=== PATIENT | female | born 1950 | race Caucasian/White ===

== ENCOUNTER 2017-02-13 06:11 | Observation (INO) | payer OTHER ==
[~2017-02-13] VITALS: Ht 165.1 cm; Wt 93.1 kg
[2017-02-13] MEDS ORDERED: OXYMETAZOLINE HCL 0.05% 15 ML NASAL SPRAY ONE (07:10)
[2017-02-13] MEDS ORDERED: BACITRACIN TOP OINT 15 GM TUBE ONE (07:11)
[2017-02-13] MEDS ORDERED: LIDOCAINE 1%/EPINEPHrine 1:100,000 SOLN 30 ML VIAL ONE (07:13)
[2017-02-13] MEDS ORDERED: SYNT112T PO (07:39)
[2017-02-13] MEDS ORDERED: METOPROLOL TARTRATE 25 MG TAB PO PRN (07:45)
[2017-02-13] MEDS ORDERED: SODIUM CHLORID 0.9% 500 ML IV PRN (07:45)
[2017-02-13] MEDS ORDERED: POVIDONE IODINE 5% (ANTISEPSIS KIT) 4 APPLICATIONS EACH NARE PRN (07:45)
[2017-02-13] MEDS ORDERED: INSULIN HUMAN REGULAR 1,000 UNITS/10 ML VIAL SQ PRN (07:45)
[2017-02-13] MEDS ORDERED: CHLORHEXIDINE GLUCONATE 2 % 1 PACK (2 CLOTHS) TOPICAL PRN (07:45)
[2017-02-13] MEDS ORDERED: LACTATED RINGER'S 1000 ML IV PRN (07:45)
[2017-02-13] MEDS ORDERED: AMPICILLIN-SULBACTAM INJ 3 GM VIAL ONE (08:06)
[2017-02-13] MEDS ORDERED: SODIUM CHLORIDE 0.9% INJ 100 ML ONE (08:06)
[2017-02-13] MEDS ORDERED: AMPICILLIN/SULBAC 3 GM/NS 100 ML IV SCH ×2 (08:45)
[2017-02-13] MEDS ORDERED: MIDAZOLAM HCL 2 MG/2 ML VIAL ONE (10:50)
[2017-02-13] MEDS ORDERED: MORPHINE SULFATE 4 MG/ML INJ ONE (11:38)
[2017-02-13 12:00] VITALS: O2SAT 99
[2017-02-13] MEDS ORDERED: ONDANSETRON HCL 4 MG/2 ML VIAL IV PUSH PRN (12:15)
[2017-02-13] MEDS ORDERED: SODIUM CHLORIDE FLUSH PRN IV FLUSH (12:45)
[2017-02-13] MEDS: LACTATED RINGER'S 1000 ML INJ 1,000 ML IV SCH (13:52)
[2017-02-13] MEDS: ACETAMINOPHEN/HYDROcodone 325 MG/5 MG TAB PO PRN ×2 (13:55→18:06)
[2017-02-13 16:00] VITALS: BP 125/62; PULSE 66; RESP 18; TEMP 97.8; O2SAT 96
[2017-02-13] MEDS: AMPICILLIN/SULBAC 3 GM/NS 100 ML IV SCH ×4 (17:29→22:57)
--- NOTE | 2017-02-13 19:30 | EKG ---
Date Performed: 02/13/2017 Time Performed: 07:56:14 PTAGE: 66 years EKG: SINUS BRADYCARDIA WITH OCCASIONAL ECTOPIC BEATS WHICH MAYBE MATRICULAR. POOR INITIAL ANTERI OR FORCES. ABNORMAL ECG NO PREVIOUS TRACING DOCTOR: Klaus Mccarty Interpretating Date/Time 02/13/2017 19:29:33
[2017-02-13 19:48] VITALS: O2SAT 99
[2017-02-13 20:00] VITALS: BP 142/78; PULSE 78; RESP 20; TEMP 98.6; O2SAT 96
[2017-02-13] MEDS ORDERED: SODIUM CHLORIDE FLUSH BID IV FLUSH SCH (21:00)
[2017-02-14] VITALS: BP 124/97; PULSE 79; RESP 20; TEMP 96.2; O2SAT 96
[2017-02-14] MEDS: LACTATED RINGER'S 1000 ML INJ 1,000 ML IV SCH (02:10)
[2017-02-14 07:30] VITALS: BP 133/99; PULSE 81; RESP 20; TEMP 96.5; O2SAT 96
[2017-02-14 08:00] VITALS: O2SAT 97
--- NOTE | 2017-02-26 13:31 | MP ---
cc: MARK NAM M.D. DATE OF SURGERY: February 13, [address] Mark Nam. PREOPERATIVE DIAGNOSIS 1. Chronic pansinusitis. 2. Nasal airway obstruction. 3. Nasal septal deviation. 4. Hypertrophy inferior turbinates. 5. Chronic sinus headache. POSTOPERATIVE DIAGNOSIS 1. Chronic pansinusitis. 2. Nasal airway obstruction. 3. Nasal septal deviation. 4. Hypertrophy inferior turbinates. 5. Chronic sinus headache. OPERATION PERFORMED 1. Open repair nasal septal fracture. 2. Bilateral submucosal resection of inferior turbinates. 3. Bilateral endoscopic total ethmoidectomy. 4. Bilateral endoscopic maxillary antrostomy. 5. Bilateral endoscopic exploration of frontal sinus duct with balloon sinuplasty. 6. Bilateral endoscopic sphenoidotomy with debridement of sphenoid sinus contents. INDICATIONS Documented in the history and physical. DESCRIPTION OF OPERATION The patient was taken to OR #2 and placed in the supine position. Following induction of general anesthesia and intubation the nose was packed bilaterally with cotton pledgets saturated in 0.05% Oxymetazoline. The nasal septum and inferior turbinates were injected with a total of 12 mL of 1% Xylocaine with epinephrine 1:100,000. She was then prepped and draped for surgery. The nasal packing was removed and a seble-transfixion incision was made in the left nasal vestibule. Through this incision the septal mucosa was elevated as far as the rostrum of the sphenoid. This exposed the quadrangular cartilage which showed ample evidence of old long healed septal fracture with numerous comminuted fragments producing bones and spurs which obstructed the nasal airway, accumulative area of 1.5 x 2.5 cm of cartilage were removed in a piecemeal fashion preserving 1.5 cm dorsal and caudal cartilaginous struts. The bony septum was then removed with Mustapha Espitiaton forceps and the maxillary crest was removed with a 6-mm Maureen chisel. The incision was then closed using a running suture of 4-0 Chromic and the mucosal layers of septum were approximated to each other with a quilting stitch of 4-0 plain gut. The inferior turbinates were addressed next, they were fractured out medially and stab incisions made along their inferior surfaces. Through these incisions the submucosal soft tissue was reduced using a curette and preserving the conchal bone. The incision was then cauterized using the suction Bovie at 35 horne. The remnants of the inferior turbinates were then re-lateralized to the lateral nasal wall. The remainder of the operation was completed using endoscopic visualization with a Storz 0 degree fiberoptic scope. Additional injections of lidocaine and epinephrine were made into the attachments of the middle turbinates as well as the uncinate processes and the anterior ethmoid cells bilaterally. Additional 10 mL was injected. The left side was addressed first beginning with amputation of the middle turbinate using through cutting Blakesley forceps and power microdebrider followed by uncinectomy which exposed the ethmoid bulla. This was bluntly penetrated, the anterior ethmoid cells were entered. They were debrided using blunt and power dissection which was carried back as far as the basal lamella of the middle turbinate. This was then reduced medially to laterally with the power debrider exposing the posterior cells. These were also exenterated using blunt and power dissection. This was carried back as far as the rostrum of the sphenoid and the middle turbinates preserved during this process. Portions of the left ethmoid were included in the specimen labeled left sinus contents. Next, the maxillary ostium was enlarged using through cutting Blakesley forceps and the Stasudhaberger forceps as well as the power microdebrider. The frontal duct was addressed next using the balloon Acclarent technique. The guidewire was advanced into the frontal sinus and the balloon was advanced over the wire. The balloon was then inflated at three levels superiorly midpoint and inferiorly in the duct at the junction with the anterior ethmoids, at each level it was inflated to a pressure of 12 atmospheres. The balloon was then removed and the duct was verified patent using a curved suction and a 70 degree scope. The left side was then irrigated with chilled saline and packed with cotton pledgets saturated in Oxymetazoline while the right side was operated in the same fashion beginning with amputation of the middle turbinate followed by uncinectomy and exenteration of anterior and posterior ethmoid cells. The maxillary ostium was enlarged. The frontal duct was dilated with the balloon technique and the sphenoid sinus was also enlarged using the balloon technique and with manual debridement with the Blakesley forceps and a 0 degree scope. The right side was then also irrigated and packed with the cotton pledgets saturated in Oxymetazoline and remained in place for a period of 5 minutes. All packing was then removed and was replaced in the ethmoid and maxillary sinuses with Stammberger sinus foam. The inferior one half of nasal vault was packed with a 5.5 cm rapid rhino pack on each side which was inflated with 5 mL of air. The procedure was then terminated and the patient was reversed from anesthesia and taken to recovery in good condition. There were no complications. Blood loss was 300 mL. MD BILL White/ADORE /12:30 PM /1:11 PM
== END 2017-02-14 08:23 | disposition home or self-care (01) ==
LOC: PHSDC 06:11 → PH3B 12:35
PROVIDERS: ADMIT Otolaryngology; ATTEND Otolaryngology
DX: J34.2 Deviated nasal septum (principal); J34.89 Other specified disorders of nose and nasal sinuses; J32.4 Chronic pansinusitis; J34.3 Hypertrophy of nasal turbinates; J32.8 Other chronic sinusitis; R51 Headache; R94.31 Abnormal electrocardiogram [ECG] [EKG]
CPT/HCPCS: 00160; 21336; 30140; 31255; 31256; 31276; 31288; 88305; 93005; 94762; 96361; 96365; 96366; 99285; G0378; J0295; J2250; J2270; J3010; J7120

== ENCOUNTER 2017-02-18 02:41 | Emergency (ER) | payer OTHER ==
[~2017-02-18] VITALS: Ht 165.1 cm; Wt 90.0 kg
[~2017-02-18 02:41] MED LIST: SYNT112T PO
[2017-02-18 02:44] VITALS: BP 128/70; PULSE 110; RESP 18; TEMP 97.8; O2SAT 96
[2017-02-18] MEDS ORDERED: LEVOTAB PO (03:00)
[2017-02-18] MEDS ORDERED: ATOR20TA15 PO (03:00)
[2017-02-18 03:01] VITALS: BP 161/91; PULSE 61; RESP 18; O2SAT 97
[2017-02-18] MEDS ORDERED: OXYMETAZOLINE HCL 0.05% 15 ML NASAL SPRAY NASAL ONE (03:15)
[2017-02-18 04:12] LABS: AUTOMATED NEUTROPHIL # 7.8 TH/MM3 (1.8-7.7); BASOPHIL # 0.1 TH/MM3 (0-0.2); EOSINOPHIL # 0.2 TH/MM3 (0-0.4); HEMATOCRIT 33.5 % (35.0-46.0); HEMOGLOBIN 11.2 GM/DL (11.6-15.3); LYMPH % 25.5 % (9.0-44.0); LYMPHOCYTE # 3.1 TH/MM3 (1.0-4.8); MEAN CELL VOLUME 92.2 FL (80.0-100.0); MEAN CORPUSCULAR HEMOGLOBIN 30.7 PG (27.0-34.0); MEAN CORPUSCULAR HGB CONC 33.3 % (32.0-36.0); MONO % 6.5 % (0.0-8.0); MONOCYTE # 0.8 TH/MM3 (0-0.9); PLATELET COUNT 322 TH/MM3 (150-450); RED BLOOD COUNT 3.64 MIL/MM3 (4.00-5.30); RED CELL DISTRIBUTION WIDTH 12.5 % (11.6-17.2); WHITE BLOOD COUNT 12.1 TH/MM3 (4.0-11.0)
[2017-02-18 04:42] LABS: PROTHROMBIN TIME - PATIENT 10.7 SEC (9.8-11.6)
--- NOTE | 2017-02-18 06:01 | PD ---
HPI Chief Complaint: Bleeding Time Seen by Provider: 04:07 Travel History International Travel<30 days: No Contact w/Intl Traveler<30days: No Traveled to known affect area: No History of Present Illness HPI 66-year-old female presents to the emergency department private transportation after being awakened from sleep with epistaxis. Patient underwent rhinoplasty procedure by Dr. Nam on Sunday had packing removed on Sunday was re-seen on Sunday for recurrent nosebleeds and has scheduled appointment on Sunday. Patient been doing well until this evening and has had continuous bleeding from bilateral nares and posterior pharyngeal bleeding and clots. Patient denies any dizziness or near syncope or shortness of breath. Patient also denies any chest pain. Patient does not take any blood thinning agents. Patient does complain of facial soreness and denies any fever or chills. PFSH Past Medical History Narrative Medical Hypothyroidism hypertension rhinoplasty; no tobacco use; nursing notes reviewed Blood Disorders: No Cancer: No Cardiovascular Problems: No Diabetes: No Endocrine: Yes Genitourinary: No Hepatitis: No Hiatal Hernia: No Immune Disorder: No Medical other: Yes (HIVES) Musculoskeletal: Yes (left knee needs replaced. ) Neurologic: No Psychiatric: No Reproductive: No Respiratory: No Thyroid Disease: Yes (hypothyroidism) Past Surgical History Abdominal Surgery: Yes (APPENDECTOMY) AICD: No Body Medical Devices: TOE FUSIONS, SPINAL PLATE Cardiac Surgery: No Ear Surgery: No Endocrine Surgery: No Eye Surgery: No Genitourinary Surgery: No Gynecologic Surgery: No Joint Replacement: Yes (RIGHT TOTAL KNEE REPLACEMENT) Neurologic Surgery: No Oral Surgery: Yes (TONSILLECTOMY) Pacemaker: No Thoracic Surgery: No Other Surgery: Yes (3 back surgeries, RTKR, L great toe fusion, laproscopic R shoulder, SINUS) Social History Alcohol Use: No Tobacco Use: No (QUIT IN 1988) Substance Use: No Allergies-Medications (Allergen,Severity, Reaction): Coded Allergies: Sulfa (Sulfonamide Antibiotics) (Verified Allergy, Unknown, Itching, 02/18) Reported Meds & Prescriptions Reported Meds & Active Scripts Active Zofran Odt (Ondansetron Odt) 4 Mg Tab 4 Mg SL Q6HR PRN Lortab (Hydrocodone-Acetaminophen) 5-325 Mg Tab 1 Tab PO Q6H PRN Amoxicillin 500 Mg Tab 500 Mg PO TID 7 Days Reported Levocetirizine 5 Mg Tab 5 Mg PO DAILY Atorvastatin (Atorvastatin Calcium) 20 Mg Tab 20 Mg PO HS Synthroid (Levothyroxine Sodium) 112 Mcg Tab 112 Mcg PO DAILY Review of Systems Except as stated in HPI: all other systems reviewed are Neg General / Constitutional: No: Fever, Chills Eyes: No: Visual changes HENT: Positive: Congestion, Nosebleed, No: Headaches, Neck Pain Cardiovascular: No: Chest Pain or Discomfort Respiratory: No: Shortness of Breath Gastrointestinal: No: Nausea, Vomiting Genitourinary: No: Flank Pain Musculoskeletal: No: Myalgias, Arthralgias Skin: No Rash Neurologic: No: Weakness, Dizziness, Syncope Psychiatric: No: Anxiety Hematologic/Lymphatic: No: Lymph Node Enlargement Physical Exam Narrative GENERAL: Well-developed well-nourished female in no acute distress no respiratory distress SKIN: Warm and dry. HEAD: Normocephalic. EYES: No scleral icterus. No injection or drainage. ENT: Bilateral epistaxis with bilateral Rhino Rocket balloons in place and posterior pharyngeal blood noted; airway is patent NECK: Supple, trachea midline. No JVD or lymphadenopathy. CARDIOVASCULAR: Regular rate and rhythm without murmurs, gallops, or rubs. RESPIRATORY: Breath sounds equal bilaterally. No accessory muscle use. GASTROINTESTINAL: Abdomen soft, non-tender, nondistended. MUSCULOSKELETAL: No cyanosis, or edema. BACK: Nontender without obvious deformity. No CVA tenderness. Data Data Last Documented VS Vital Signs Date Time Temp Pulse Resp B/P (MAP) Pulse Ox O2 Delivery O2 Flow Rate FiO2 02/18/17 06:14 02/18/17 06:02 94 18 02/18/17 03:01 97 Room Air 02/18/17 02:44 97.8 Orders Orders Oxymetazoline 0.05% [place] (Afrin 0.0 (02/18/17 03:15) Act Partial Throm Time (Ptt) (02/18/17 03:57) Prothrombin Time / Inr (Pt) (02/18/17 03:57) Complete Blood Count With Diff (02/18/17 03:57) Type And Screen (02/18/17 03:57) Ed Discharge Order (02/18/17 06:04) Labs Laboratory Tests Test 02/18/17 04:05 White Blood Count 12.1 TH/MM3 Red Blood Count 3.64 MIL/MM3 Hemoglobin 11.2 GM/DL Hematocrit 33.5 % Mean Corpuscular Volume 92.2 FL Mean Corpuscular Hemoglobin 30.7 PG Mean Corpuscular Hemoglobin Concent 33.3 % Red Cell Distribution Width 12.5 % Platelet Count 322 TH/MM3 Mean Platelet Volume 8.0 FL Neutrophils (%) (Auto) 65.0 % Lymphocytes (%) (Auto) 25.5 % Monocytes (%) (Auto) 6.5 % Eosinophils (%) (Auto) 2.0 % Basophils (%) (Auto) 1.0 % Neutrophils # (Auto) 7.8 TH/MM3 Lymphocytes # (Auto) 3.1 TH/MM3 Monocytes # (Auto) 0.8 TH/MM3 Eosinophils # (Auto) 0.2 TH/MM3 Basophils # (Auto) 0.1 TH/MM3 CBC Comment DIFF FINAL Differential Comment Prothrombin Time 10.7 SEC Prothromb Time International Ratio 1.0 RATIO Activated Partial Thromboplast Time 26.8 SEC MDM Medical Decision Making Medical Screen Exam Complete: Yes Emergency Medical Condition: Yes Medical Record Reviewed: Yes Interpretation(s) CBC & BMP Diagram 02/18/17 04:05 Vital Signs Date Time Temp Pulse Resp B/P (MAP) Pulse Ox O2 Delivery O2 Flow Rate FiO2 02/18/17 06:14 02/18/17 06:02 94 18 118/57 (77) 141/65 (90) 130/56 (80) 02/18/17 03:01 61 18 161/91 (114) 97 Room Air 02/18/17 02:56 18 02/18/17 02:44 97.8 110 18 128/70 (89) 96 Differential Diagnosis Epistaxis coagulopathy and Benadryl hypertension Narrative Course Patient with ongoing epistaxis therefore Rhino Rocket balloon of the left nostril removed and right Rhino Rocket fell out of the right nostril therefore patient was administered 5.5 Rhino Rocket to the left and right nostrils with good hemostasis Patient monitored no ongoing Hemoglobin stable platelets and normal range and coagulation studies within normal limits 6:03 AM there is no further bleeding; patient is stable for outpatient management Diagnosis Primary Impression: Epistaxis Referrals: Nii Nam MD call for appointment Patient Instructions: General Instructions Additional Instructions: Increase fluid hydration Do not take any nonsteroidal anti-inflammatory medications Apply ice pack intermittently Follow-up with your urinalysis and throat specialist this week call office in a.m. to schedule follow-up appointment Return to the emergency department for any concerns or change in condition Take antibiotic as prescribed Med/Other Pt SpecificInfo: Prescription(s) given Scripts Ondansetron Odt (Zofran Odt) 4 Mg Tab 4 MG SL Q6HR Y for Nausea/Vomiting, #10 TAB 0 Refills Prov: Cinthia Rhodes MD 02/18/17 Hydrocodone-Acetaminophen (Lortab) 5-325 Mg Tab 1 TAB PO Q6H Y for PAIN, #7 TAB 0 Refills Prov: Cinthia Rhodes MD 02/18/17 Amoxicillin (Amoxicillin) 500 Mg Tab 500 MG PO TID for Infection for 7 Days, TAB 0 Refills Prov: Cinthia Rhodes MD 02/18/17 Disposition: 01 DISCHARGE HOME Condition: Stable Cinthia Rhodes MD Feb 18, 2017 06:01
[2017-02-18 06:02] VITALS: BP_SYST 118; BP_SYST 130; BP_SYST 141; BP_DIAS 56; BP_DIAS 57; BP_DIAS 65; PULSE 94; RESP 18
[2017-02-18] MEDS ORDERED: ZOFR4TAB3 SL (06:03)
[2017-02-18] MEDS ORDERED: HYDR-3533 PO (06:03)
[2017-02-18] MEDS ORDERED: AMOX500T PO (06:03)
== END 2017-02-18 06:36 | disposition home or self-care (01) ==
LOC: NEPC 02:41
DX: R04.0 Epistaxis (principal); R51 Headache; E03.9 Hypothyroidism, unspecified; I10 Essential (primary) hypertension; Z98.890 Other specified postprocedural states; Z87.39 Personal history of other diseases of the musculoskeletal system and connective tissue
CPT/HCPCS: 85025; 85610; 85730; 86850; 86900; 86901; 99284

== ENCOUNTER 2017-02-18 20:46 | Inpatient (IN) | payer OTHER, MEDICARE ==
[~2017-02-18] VITALS: Ht 165.1 cm; Wt 95.5 kg
[~2017-02-18 20:46] MED LIST changes: +AMOX500T PO; +ATOR20TA15 PO; +HYDR-3533 PO; +LEVOTAB PO; +ZOFR4TAB3 SL
[2017-02-18 20:47] VITALS: BP 153/70; PULSE 127; RESP 22; TEMP 98.4; O2SAT 95
[2017-02-18 21:11] VITALS: BP 137/70; PULSE 125; RESP 18; O2SAT 95
[2017-02-18] MEDS ORDERED: ONDANSETRON HCL 4 MG/2 ML VIAL IV ONE (21:45)
[2017-02-18] MEDS ORDERED: SODIUM CHLOR 0.9% 1000 ML INJ 1,000 ML IV ONE (21:45)
--- NOTE | 2017-02-18 22:20 | PD ---
HPI Chief Complaint: Nosebleed Time Seen by Provider: 21:13 Travel History International Travel<30 days: No Contact w/Intl Traveler<30days: No Traveled to known affect area: No History of Present Illness HPI The patient is a 66 year old female who presents to the [facility] emergency department with a history of recurrent nosebleeds that began after having surgery on February 13. The patient is postop day #5 status post sinus surgery by Dr. Nam. The patient reports that she was admitted overnight to the hospital and discharged on Sunday. She reports that on Sunday she began to have epistaxis. She went to Dr. Nam's office and had bilateral nares packed. The bleeding was controlled at that time and then recurred again on February 18 at approximately 2:30 AM. The patient was seen in the emergency department at that time and had her packing removed and replaced. Bleeding was again controlled, therefore the patient was discharged home to follow-up with her nuclear medical technologist. The patient reports that today again she began to have bleeding causing her to vomit blood due to blood pooling in the posterior oropharynx. She denies having any anterior bleeding around her packing. She reports that it began at 5 PM. On review of systems, she denies having any recent fevers, cough,neck pain, chest pain, shortness of breath, abdominal pain, vomiting, diarrhea, urinary symptoms, or other neurologic symptoms. [facility] Past Medical History Narrative Medical The patient's past medical history is significant for hypothyroid disorder, hypertension, recurrent sinus infections, arthritis. Blood Disorders: No Cancer: No Cardiovascular Problems: No Diabetes: No Diminished Hearing: No Endocrine: Yes Genitourinary: No Hepatitis: No Hiatal Hernia: No Immune Disorder: No Musculoskeletal: Yes (left knee needs replaced. ) Neurologic: No Psychiatric: No Reproductive: No Respiratory: No Thyroid Disease: Yes (hypothyroidism) Past Surgical History Narrative Surgical The patient's past surgical history is significant for an appendectomy, toe surgery, 3 prior back surgeries, right total knee replacement, tonsillectomy, sinus surgery on February 13, 2017 Abdominal Surgery: Yes (APPENDECTOMY) AICD: No Body Medical Devices: TOE FUSIONS, SPINAL PLATE Cardiac Surgery: No Ear Surgery: No Endocrine Surgery: No Eye Surgery: No Genitourinary Surgery: No Gynecologic Surgery: No Joint Replacement: Yes (RIGHT TOTAL KNEE REPLACEMENT) Neurologic Surgery: No Oral Surgery: Yes (TONSILLECTOMY) Pacemaker: No Thoracic Surgery: No Other Surgery: Yes (3 back surgeries, RTKR, L great toe fusion, laproscopic R shoulder, SINUS) Social History Alcohol Use: No Tobacco Use: No (QUIT IN 1988) Substance Use: No Allergies-Medications (Allergen,Severity, Reaction): Coded Allergies: Sulfa (Sulfonamide Antibiotics) (Verified Allergy, Unknown, Itching, 02/18) Reported Meds & Prescriptions Reported Meds & Active Scripts Active Zofran Odt (Ondansetron Odt) 4 Mg Tab 4 Mg SL Q6HR PRN Lortab (Hydrocodone-Acetaminophen) 5-325 Mg Tab 1 Tab PO Q6H PRN Amoxicillin 500 Mg Tab 500 Mg PO TID 7 Days Reported Levocetirizine 5 Mg Tab 5 Mg PO DAILY Atorvastatin (Atorvastatin Calcium) 20 Mg Tab 20 Mg PO HS Synthroid (Levothyroxine Sodium) 112 Mcg Tab 112 Mcg PO DAILY Review of Systems Except as stated in HPI: all other systems reviewed are Neg General / Constitutional: No: Fever Eyes: No: Visual changes HENT: Positive: Nosebleed, No: Headaches Cardiovascular: No: Chest Pain or Discomfort Respiratory: No: Shortness of Breath Gastrointestinal: Positive: Nausea, Vomiting, Hematemesis, No: Abdominal Pain Genitourinary: No: Dysuria Musculoskeletal: No: Pain Skin: No Rash Neurologic: No: Weakness Psychiatric: No: Depression Endocrine: No: Polydipsia Hematologic/Lymphatic: No: Easy Bruising Physical Exam Narrative General: The patient is a well-developed well-nourished female, uncomfortable appearing on examination, repeatedly spitting out blood holding a basin under her mouth. Head and Neck exam: Head is normocephalic atraumatic. Eyes: EOMI, pupils are equal round and reactive to light. Nose: Nasal packing is in place and bilateral nares. No bleeding is noted around the packing. Mouth: Dentition unremarkable. Moist mucus membranes. Posterior oropharynx is not erythematous, however blood is noted in the posterior oropharynx with a large clot present protruding behind the uvula. No tonsillar hypertrophy. Uvula midline. Airway patent. Neck: No palpable lymphadenopathy. No nuchal rigidity. No thyromegaly. Cardiovascular: Sinus tachycardia in the 1 teens without murmurs, gallops, or rubs. No pulse deficit to the extremities on simultaneous auscultation and palpation of his radial artery. Lungs: Clear to auscultation bilaterally. No wheezes, rhonchi, or rales. Abdomen: Soft, without tenderness to palpation in all 4 quadrants of the abdomen. No guarding, rebound, or rigidity. No tenderness on palpation of McBurney's point. Normal bowel sounds are audible. Extremities: No clubbing, cyanosis, or edema. 2+ pulses in all 4 extremities. Back: No costovertebral angle tenderness to palpation. Neurologic Exam: Grossly nonfocal. Skin Exam: No rash noted. Intact skin that is warm and dry. Data Data Last Documented VS Vital Signs Date Time Temp Pulse Resp B/P (MAP) Pulse Ox O2 Delivery O2 Flow Rate FiO2 02/18/17 21:11 125 15 02/18/17 21:11 137/70 (92) 95 Room Air 02/18/17 20:47 98.4 Orders Orders Electrocardiogram (02/18/17 21:26) Complete Blood Count With Diff (02/18/17 21:26) Comprehensive Metabolic Panel (02/18/17 21:26) Prothrombin Time / Inr (Pt) (02/18/17:26) Act Partial Throm Time (Ptt) (02/18/17 21:26) Chest, Single Ap (02/18/17 21:26) Ecg Monitoring (02/18/17 21:26) Oximetry (02/18/17 21:26) Sodium Chlor 0.9% 1000 Ml Inj (Ns 1000 M (02/18/17 21:45) Ondansetron Inj (Zofran Inj) (02/18/17 21:45) Diet Npo (02/19/17 Breakfast) Admit Order (Ed Use Only) (02/18/17 22:58) Labs Laboratory Tests Test 02/18/17 21:50 White Blood Count 14.9 TH/MM3 Red Blood Count 3.61 MIL/MM3 Hemoglobin 11.1 GM/DL Hematocrit 33.2 % Mean Corpuscular Volume 91.9 FL Mean Corpuscular Hemoglobin 30.8 PG Mean Corpuscular Hemoglobin Concent 33.6 % Red Cell Distribution Width 12.7 % Platelet Count 323 TH/MM3 Mean Platelet Volume 7.8 FL Neutrophils (%) (Auto) 72.8 % Lymphocytes (%) (Auto) 17.9 % Monocytes (%) (Auto) 7.3 % Eosinophils (%) (Auto) 1.5 % Basophils (%) (Auto) 0.5 % Neutrophils # (Auto) 10.9 TH/MM3 Lymphocytes # (Auto) 2.7 TH/MM3 Monocytes # (Auto) 1.1 TH/MM3 Eosinophils # (Auto) 0.2 TH/MM3 Basophils # (Auto) 0.1 TH/MM3 CBC Comment DIFF FINAL Differential Comment Prothrombin Time 10.7 SEC Prothromb Time International Ratio 1.0 RATIO Activated Partial Thromboplast Time 26.0 SEC Blood Urea Nitrogen 21 MG/DL Creatinine 0.85 MG/DL Random Glucose 125 MG/DL Total Protein 7.7 GM/DL Albumin 3.8 GM/DL Calcium Level 9.0 MG/DL Alkaline Phosphatase 82 U/L Aspartate Amino Transf (AST/SGOT) 16 U/L Alanine Aminotransferase (ALT/SGPT) 19 U/L Total Bilirubin 0.4 MG/DL Sodium Level 139 MEQ/L Potassium Level 3.7 MEQ/L Chloride Level 107 MEQ/L Carbon Dioxide Level 26.1 MEQ/L Anion Gap 6 MEQ/L Estimat Glomerular Filtration Rate 67 ML/MIN [facility] Medical Decision Making Medical Screen Exam Complete: Yes Emergency Medical Condition: Yes Medical Record Reviewed: Yes Interpretation(s) Last Impressions Chest X-Ray 02/18/172125 Signed Impressions: Service Date/Time: Saturday, February 18, 2017 23:14 - CONCLUSION: 1. No acute cardiopulmonary disease. 2. Scoliosis and degenerative changes. Sea Haney MD Differential Diagnosis Symptomatic anemia, versus coagulopathy Narrative Course During the course of the patients emergency department visit, the patients history, examination, and differential diagnosis were reviewed with the patient. The patient was placed on a die fitter with oximetry and frequent blood pressure monitoring. The patient had IV access obtained and blood work sent for analysis. EKG shows a sinus rhythm with a heart rate of 94, no acute ST segment elevation. Occasional premature atrial complexes are noted. The patient was initially provided normal saline 1 L IV fluid bolus, Zofran 4 mg IV. A call was immediately placed out to the urine is and throat specialist covering for Dr. Nam. I explained to him the large clot that was visualized in the patient's posterior oropharynx as well as the patient's continued posterior bleeding. I asked whether he would want me to attempt to suction and remove this clot. He recommended that the clot be left to stabilize the bleeding. He recommended that the packing the continued in place. He reports that Dr. Nam will see the patient in consultation tomorrow. He requested that the patient be made nothing by mouth. The patients laboratory studies were reviewed and remarkable for white count is 14.9, hemoglobin 11.1, platelets 323 with 72.8 neutrophils, CMP is remarkable for glucose of 125, BUN 21, PT 10.7, PTT 26 Radiology studies were reviewed and remarkable for a chest x-ray that shows no acute cardiopulmonary disease. Scoliosis and degenerative changes are noted. While being observed in the emergency department, the patient had an episode of gagging and the left nasal packing came out. I again spoke to regarding this patient's case. He requested that the patient have a 7.5 Rhino Rocket nasal packing placed back in the left nare. This was done while the patient was in the emergency department. Again, the patient's bleeding was controlled. The patients results were discussed with the patient, including the plan of care. I explained that further testing and/ or monitoring is indicated based on the patients history, examination, and/ or laboratory findings. Therefore, I recommended admission for additional evaluation. The patient expressed understanding and was agreeable with this plan. The patient was admitted to the hospital in guarded condition and [facility] Physician Communication Physician Communication The Patient's case was discussed with at 21:40. He recommended that we recheck the patient's current blood indices to assess for progression of anemia. He recommended continuation of IV fluids. He recommended that the patient be admitted for continued evaluation and treatment. He requested that the patient be made nothing by mouth. He anticipates that the patient may require evaluation in the OR again by Dr. Nam tomorrow. I asked whether he would want me to remove the patient's packing. He requested that I not remove the packing and not disrupt the clot in the posterior oropharynx. During the episode of retching, the patient's left nasal packing displaced. The patient had bleeding noted from the left naris and down the posterior oropharynx. Again was called regarding this patient's case and I spoke to him at 10:38 PM. He requested that a 7-1/2 size nasal packing be placed in the left nare to temporize the bleeding again. The patient's case is discussed with Dr. Rangel who did agree to admit the patient for further evaluation and treatment at this time. Diagnosis Primary Impression: Epistaxis, recurrent Additional Impression: H/O sinus surgery Admitting Information Admitting Physician Requests: Admit Annie Bcekman MD Feb 18, 2017 22:20
[2017-02-18 22:23] LABS: AUTOMATED NEUTROPHIL # 10.9 TH/MM3 (1.8-7.7); BASOPHIL # 0.1 TH/MM3 (0-0.2); BASOPHIL % 0.5 % (0.0-2.0); EOSINOPHIL # 0.2 TH/MM3 (0-0.4); EOSINOPHIL % 1.5 % (0.0-4.0); HEMATOCRIT 33.2 % (35.0-46.0); HEMO FLAGS DIFF FINAL; LYMPH % 17.9 % (9.0-44.0); LYMPHOCYTE # 2.7 TH/MM3 (1.0-4.8); MEAN CELL VOLUME 91.9 FL (80.0-100.0); MEAN CORPUSCULAR HEMOGLOBIN 30.8 PG (27.0-34.0); MEAN CORPUSCULAR HGB CONC 33.6 % (32.0-36.0); MONO % 7.3 % (0.0-8.0); NEUT % 72.8 % (16.0-70.0); PLATELET COUNT 323 TH/MM3 (150-450); RED BLOOD COUNT 3.61 MIL/MM3 (4.00-5.30); RED CELL DISTRIBUTION WIDTH 12.7 % (11.6-17.2); WHITE BLOOD COUNT 14.9 TH/MM3 (4.0-11.0)
[2017-02-18 22:34] LABS: PROTHROMBIN TIME - PATIENT 10.7 SEC (9.8-11.6)
[2017-02-18 22:40] LABS: ALKALINE PHOSPHATASE 82 U/L (45-117); TOTAL BILIRUBIN ADULT 0.4 MG/DL (0.2-1.0)
[2017-02-18 22:42] LABS: ALT (GPT) 19 U/L (10-53); ANION GAP 6 MEQ/L (5-15); AST (GOT) 16 U/L (15-37); BICARBONATE 26.1 MEQ/L (21.0-32.0); BLOOD UREA NITROGEN 21 MG/DL (7-18); CHLORIDE 107 MEQ/L (98-107); GLOMERULAR FILTRATION RATE 67 ML/MIN (>89); POTASSIUM 3.7 MEQ/L (3.5-5.1); SODIUM (NA) 139 MEQ/L (136-145)
--- NOTE | 2017-02-18 23:03 | RADRPT ---
EXAM DATE/TIME: 02/18/2017 23:14 [facility] COMPARISON: No previous studies available for comparison. INDICATIONS : Patient spitting up blood, states since 02/15. MEDICAL HISTORY : None. SURGICAL HISTORY : None. ENCOUNTER: Initial ACUITY: 1 day PAIN SCORE: 0/10 LOCATION: Bilateral chest FINDINGS: A single view of the chest demonstrates the lungs to be symmetrically aerated without evidence of mas s, infiltrate or effusion. The cardiomediastinal contours are unremarkable. Scoliotic and degenerati ve changes. CONCLUSION: 1. No acute cardiopulmonary disease. 2. Scoliosis and degenerative changes. Sea Haney MD on February 18, 2017 at 23:01 Board Certified Radiologist. This report was verified electronically.
--- NOTE | 2017-02-18 23:09 | HHI.HP ---
HPI Service [facility] Primary Care Physician Lisandra Gasca MD Admission Diagnosis Nosebleed after sinus surgery Diagnoses: (1) H/O sinus surgery Diagnosis: Principal (2) Epistaxis, recurrent Diagnosis: Principal (3) HTN (hypertension) Diagnosis: Principal (4) Leukocytosis Diagnosis: Principal (5) Dehydration Diagnosis: Principal Travel History International Travel<30 Days: No Contact w/Intl Traveler <30 Da: No Traveled to Known Affected Are: No History of Present Illness This is a 66-year-old female with a PMH of HTN, Hyperlipidemia and Hypothyroidism who presented to the ER with complaints of epistaxis started proximally 5 PM. Seen in ER on 02/18/17 for similar complaints, s/p Nasal Surgery by Dr. Nam on 02/13/17, had packing removed the following day and was seen in office on 02/16/17 for epistaxis w/ nasal packing placed. Last evening had recurrent bleeding and was seen in ER, nasal packing removed and replaced w/ successful control of bleeding. Davey had recurrent episode of epistaxis, noted to have large oropharyngeal clot. Dr. Verde consulted by ER physician, recommended nasal packing w/ admission for likely surgical eval by Dr. Nam in am. While in ER, pt w/ episodes of nausea/vomiting, nasal packing dislodged and replaced. BP 153/70, HR 127, O2 sat 95% on RA Afebrile. WBC 14.9. Hemoglobin 11.1, previously 11.2 on 02/18/17. Chemistry unremarkable except for GFR 67, BUN 21. INR 1.0. CXR with no acute findings. Review of Systems Except as stated in HPI: all other systems reviewed are Neg ROS: 14 point review of systems otherwise negative. Past Family Social History Past Medical History PMH: HTN, Hyperlipidemia and Hypothyroidism Past Surgical History PAST SURGICAL HISTORY: Appendectomy, Spinal Plate, Right Total Knee Replacement , Tonsillectomy, Left Toe Fusion Right Shoulder Surgery, Sinus Surgery Allergies: Coded Allergies: Sulfa (Sulfonamide Antibiotics) (Verified Allergy, Unknown, Itching, 02/18) Family History PAST FAMILY HISTORY: Reviewed. No h/o DM or CAD Social History PAST SOCIAL HISTORY: Negative for alcohol, tobacco or drugs. Physical Exam Vital Signs Vital Signs Date Time Temp Pulse Resp B/P (MAP) Pulse Ox O2 Delivery O2 Flow Rate FiO2 02/18/17 21:11 125 15 02/18/17 21:11 125 18 137/70 (92) 95 Room Air 02/18/17 20:47 98.4 127 22 153/70 (97) 95 Room Air Physical Exam PE: GENERAL: Middle-aged white female in moderate distress secondary to ongoing epistaxis, spitting up blood. HEENT: PERRLA, EOMI. No scleral icterus or conjunctival pallor. No lid lag or facial droop. Nasal packing in place CARDIOVASCULAR: Regular rate and rhythm. No obvious murmurs to auscultation. No chest tenderness to palpation. RESPIRATORY: No obvious rhonchi or wheezing. Clear to auscultation. Breath sounds equal bilaterally. GASTROINTESTINAL: Abdomen soft, non-tender, nondistended. BS normal. MUSCULOSKELETAL: Extremities without clubbing, cyanosis, or edema. No obvious deformities. NEUROLOGICAL: Awake, alert and oriented x4. No focal neurologic deficits. Moving both upper and lower extremities spontaneously. Laboratory Laboratory Tests Test 02/18/17 21:50 White Blood Count 14.9 Red Blood Count 3.61 Hemoglobin 11.1 Hematocrit 33.2 Mean Corpuscular Volume 91.9 Mean Corpuscular Hemoglobin 30.8 Mean Corpuscular Hemoglobin Concent 33.6 Red Cell Distribution Width 12.7 Platelet Count 323 Mean Platelet Volume 7.8 Neutrophils (%) (Auto) 72.8 Lymphocytes (%) (Auto) 17.9 Monocytes (%) (Auto) 7.3 Eosinophils (%) (Auto) 1.5 Basophils (%) (Auto) 0.5 Neutrophils # (Auto) 10.9 Lymphocytes # (Auto) 2.7 Monocytes # (Auto) 1.1 Eosinophils # (Auto) 0.2 Basophils # (Auto) 0.1 CBC Comment DIFF FINAL Differential Comment Prothrombin Time 10.7 Prothromb Time International Ratio 1.0 Activated Partial Thromboplast Time 26.0 Blood Urea Nitrogen 21 Creatinine 0.85 Random Glucose 125 Total Protein 7.7 Albumin 3.8 Calcium Level 9.0 Alkaline Phosphatase 82 Aspartate Amino Transf (AST/SGOT) 16 Alanine Aminotransferase (ALT/SGPT) 19 Total Bilirubin 0.4 Sodium Level 139 Potassium Level 3.7 Chloride Level 107 Carbon Dioxide Level 26.1 Anion Gap 6 Estimat Glomerular Filtration Rate 67 Result Diagram: 02/18/17214902/18/172149 Caprini VTE Risk Assessment Caprini VTE Risk Assessment: No/Low Risk (score <= 1) Caprini Risk Assessment Model Point Value = 1 Point Value = 2 Point Value = 3 Point Value = 5 Age 41-60 Minor surgery BMI > 25 kg/m2 Swollen legs Varicose veins or History of unexplained or recurrent spontaneous Oral contraceptives or hormone replacement Sepsis (< 1 month) Serious lung disease, including pneumonia (< 1 month) Abnormal pulmonary function Acute myocardial infarction Congestive heart failure (< 1 month) History of inflammatory bowel disease Medical patient at bed rest Age 61-74 Arthroscopic surgery Major open surgery (> 45 min) Laparoscopic surgery (> 45 min) Malignancy Confined to bed (> 72 hours) Immobilizing plaster cast Central venous access Age >= 75 History of VTE Family history of VTE Factor V Leiden Prothrombin [id number] Lupus anticoagulant Anticardiolipin antibodies Elevated serum homocysteine Heparin-induced thrombocytopenia Other congenital or acquired thrombophilia Stroke (< 1 month) Elective arthroplasty Hip, pelvis, or leg fracture Acute spinal cord injury (< 1 month) Prophylaxis Regimen Total Risk Factor Score Risk Level Prophylaxis Regimen 0-1 Low Early ambulation 2 Moderate Order ONE of the following: *Sequential Compression Device (SCD) *Heparin 5000 units SQ BID 3-4 Higher Order ONE of the following medications: *Heparin 5000 units SQ TID *Enoxaparin/Lovenox 40 mg SQ daily (WT < 150 kg, CrCl > 30 mL/min) *Enoxaparin/Lovenox 30 mg SQ daily (WT < 150 kg, CrCl > 10-29 mL/min) *Enoxaparin/Lovenox 30 mg SQ BID (WT < 150 kg, CrCl > 30 mL/min) AND/OR *Sequential Compression Device (SCD) 5 or more Highest Order ONE of the following medications: *Heparin 5000 units SQ TID (Preferred with Epidurals) *Enoxaparin/Lovenox 40 mg SQ daily (WT < 150 kg, CrCl > 30 mL/min) *Enoxaparin/Lovenox 30 mg SQ daily (WT < 150 kg, CrCl > 10-29 mL/min) *Enoxaparin/Lovenox 30 mg SQ BID (WT < 150 kg, CrCl > 30 mL/min) AND *Sequential Compression Device (SCD) Assessment and Plan Problem List: (1) H/O sinus surgery ICD Code: Z98.890 - Other specified postprocedural states Status: Acute (2) Epistaxis, recurrent ICD Code: R04.0 - Epistaxis Status: Acute (3) HTN (hypertension) ICD Code: I10 - Essential (primary) hypertension (4) Leukocytosis ICD Code: D72.829 - Elevated white blood cell count, unspecified (5) Dehydration ICD Code: E86.0 - Dehydration Assessment and Plan A/P: 1. H/o Sinus Sx: s/p sinus surgery 02/13/[address] Nam w/ multiple episodes of epistaxis. 2. Epistaxis: Recurrent. S/p nasal packing placed and replaced, seen in ER on 02/18/17 for similar complaints, now w/ recurrent epistaxis, nasal packing replaced again. Dr. Verde consulted by ER physician, likely surgical exploration by Dr. Nam in am. Keep NPO, IVF. Will admit to ICU for close monitoring in light of significant amount of epistaxis and uncontrolled bleeding , now stabilized. 3. HTN: BP 160's on arrival, likely secondary to discomfort, nausea/vomiting from epistaxis, optimize BP control to avoid further bleeding. 4. Leukocytosis: WBC 14.9, likely secondary to stress response, no obvious infection. Afebrile. CXR w/ no acute findings, images reviewed by me. 5. Dehydration: GFR 67, BUN 21. IVF for hydration, repeat labs in a.m. 6. DVT Prophylaxis: Pharmacologic contraindications secondary to active bleeding. 7. Social work for DC planning as needed. 8. Case discussed at length with ER physician. Physician Certification 2 Midnight Certification Type: Admission for Inpatient Services Order for Inpatient Services The services are ordered in accordance with Medicare regulations or non- Medicare payer requirements, as applicable. In the case of services not specified as inpatient-only, they are appropriately provided as inpatient services in accordance with the 2-midnight benchmark. Estimated LOS (days): 2 days is the estimated time the patient will need to remain in the hospital, assuming treatment plan goals are met and no additional complications. Post-Hospital Plan: Not yet determined Georgina Rangel MD Feb 18, 2017 23:09
[2017-02-18] MEDS ORDERED: MISCELLANEOUS NURSING INFORMATION XX SCH (23:15)
[2017-02-18] MEDS ORDERED: MORPHINE SULFATE 2 MG/ML INJ IV PUSH ONE (23:15)
[2017-02-18] MEDS ORDERED: CHLORHEXIDINE GLUCONATE 2 % 1 PACK (2 CLOTHS) TOP PRN (23:15)
[2017-02-18] MEDS ORDERED: BISACODYL 10 MG SUPP RECTAL PRN (23:15)
[2017-02-18] MEDS ORDERED: MAGNESIUM HYDROXIDE SUSP 30 ML CUP PO PRN (23:15)
[2017-02-18] MEDS ORDERED: MORPHINE SULFATE 4 MG/ML INJ IV PUSH ONE (23:15)
[2017-02-18] MEDS ORDERED: LACTULOSE SYRUP 20 GM/30 ML CUP PO PRN (23:15)
[2017-02-18] MEDS ORDERED: ACETAMINOPHEN 1000 MG/100 ML 100 ML IV PRN (23:15)
[2017-02-18] MEDS ORDERED: ONDANSETRON HCL 4 MG/2 ML VIAL IVP PRN (23:15)
[2017-02-18] MEDS ORDERED: SODIUM CHLORIDE 0.9% FLUSH 10 ML FLUSH IV FLUSH PRN (23:15)
[2017-02-18] MEDS ORDERED: SENNOSIDES 8.6 MG TAB PO PRN (23:15)
[2017-02-18] MEDS ORDERED: MORPHINE SULFATE 2 MG/ML INJ IV PRN (23:30)
[2017-02-18 23:45] VITALS: BP 166/96; PULSE 96; RESP 17; O2SAT 97
[2017-02-18] MEDS: SODIUM CHLOR 0.9% 1000 ML INJ 1,000 ML IV SCH (23:50)
[2017-02-19] VITALS (14 sets, daily range): BP systolic 124–168; BP diastolic 58–73; PULSE 70–97; RESP 12–23; TEMP 98.4–99.7; O2SAT 93–100
[2017-02-19] MEDS: CHLORHEXIDINE GLUCONATE 2 % 1 PACK (2 CLOTHS) TOP SCH ×2 (01:43→23:02)
[2017-02-19 05:10] LABS: AUTOMATED NEUTROPHIL # 9.2 TH/MM3 (1.8-7.7); BASOPHIL # 0.1 TH/MM3 (0-0.2); BASOPHIL % 0.5 % (0.0-2.0); EOSINOPHIL % 0.1 % (0.0-4.0); HEMATOCRIT 24.8 % (35.0-46.0); HEMO FLAGS DIFF FINAL; LYMPH % 13.7 % (9.0-44.0); LYMPHOCYTE # 1.6 TH/MM3 (1.0-4.8); MEAN CELL VOLUME 92.3 FL (80.0-100.0); MEAN CORPUSCULAR HEMOGLOBIN 31.2 PG (27.0-34.0); MEAN CORPUSCULAR HGB CONC 33.8 % (32.0-36.0); MONO % 4.9 % (0.0-8.0); NEUT % 80.8 % (16.0-70.0); PLATELET COUNT 253 TH/MM3 (150-450); RED BLOOD COUNT 2.68 MIL/MM3 (4.00-5.30); RED CELL DISTRIBUTION WIDTH 12.5 % (11.6-17.2); WHITE BLOOD COUNT 11.4 TH/MM3 (4.0-11.0)
[2017-02-19 05:50] LABS: ALKALINE PHOSPHATASE 62 U/L (45-117); ALT (GPT) 16 U/L (10-53); ANION GAP 8 MEQ/L (5-15); AST (GOT) 12 U/L (15-37); BICARBONATE 25.2 MEQ/L (21.0-32.0); BLOOD UREA NITROGEN 20 MG/DL (7-18); CHLORIDE 108 MEQ/L (98-107); GLOMERULAR FILTRATION RATE 78 ML/MIN (>89); POTASSIUM 4.3 MEQ/L (3.5-5.1); SODIUM (NA) 141 MEQ/L (136-145); TOTAL BILIRUBIN ADULT 0.2 MG/DL (0.2-1.0)
--- NOTE | 2017-02-19 07:05 | PD.CONS ---
History of Present Illness Service ENT Consult Requested By ED Reason for Consult Epistaxis Primary Care Physician Lisandra Gacsa MD Diagnoses: History of Present Illness 66 year old female had FESS last week. on Sunday. She was packed for post operative bleeding on Sunday. She presented to ED last night with further bleeding. Now has a posterior pack and is controlled. Review of Systems Ears, nose, mouth, throat: COMPLAINS OF: Epistaxis Past Family Social History Allergies: Coded Allergies: Sulfa (Sulfonamide Antibiotics) (Verified Allergy, Unknown, Itching, 02/18) Physical Exam Vital Signs Vital Signs Date Time Temp Pulse Resp B/P (MAP) Pulse Ox O2 Delivery O2 Flow Rate FiO2 02/19/17 02:00 91 02/19/17 00:30 02/19/17 00:03 90 15 146/67 (93) 97 Room Air 02/19/17 00:00 94 02/19/17 00:00 98.7 91 20 168/73 (104) 95 02/19/17 00:00 94 Room Air 02/18/17 23:45 96 17 166/96 (119) 97 Room Air 02/18/17 21:11 125 15 02/18/17 21:11 125 18 137/70 (92) 95 Room Air 02/18/17 20:47 98.4 127 22 153/70 (97) 95 Room Air Physical Exam GENERAL: This is a well-nourished, well-developed patient, in no apparent distress. SKIN: No rashes, ecchymoses or lesions. Cool and dry. HEAD: Atraumatic. Normocephalic. No temporal or scalp tenderness. EYES: Pupils equal round and reactive. Extraocular motions intact. No scleral icterus. No injection or drainage. ENT: Bilateral nasal packing, no active bleed. Throat without erythema, tonsillar hypertrophy or exudate. Uvula midline. Airway patent. NECK: Trachea midline. No JVD or lymphadenopathy. Supple, nontender, no meningeal signs. Laboratory Laboratory Tests Test 02/18/17 21:50 02/19/17 04:32 White Blood Count 14.9 11.4 Red Blood Count 3.61 2.68 Hemoglobin 11.1 8.4 Hematocrit 33.2 24.8 Mean Corpuscular Volume 91.9 92.3 Mean Corpuscular Hemoglobin 30.8 31.2 Mean Corpuscular Hemoglobin Concent 33.6 33.8 Red Cell Distribution Width 12.7 12.5 Platelet Count 323 253 Mean Platelet Volume 7.8 7.8 Neutrophils (%) (Auto) 72.8 80.8 Lymphocytes (%) (Auto) 17.9 13.7 Monocytes (%) (Auto) 7.3 4.9 Eosinophils (%) (Auto) 1.5 0.1 Basophils (%) (Auto) 0.5 0.5 Neutrophils # (Auto) 10.9 9.2 Lymphocytes # (Auto) 2.7 1.6 Monocytes # (Auto) 1.1 0.6 Eosinophils # (Auto) 0.2 0.0 Basophils # (Auto) 0.1 0.1 CBC Comment DIFF FINAL DIFF FINAL Differential Comment Prothrombin Time 10.7 Prothromb Time International Ratio 1.0 Activated Partial Thromboplast Time 26.0 Blood Urea Nitrogen 21 20 Creatinine 0.85 0.74 Random Glucose 125 128 Total Protein 7.7 6.2 Albumin 3.8 3.1 Calcium Level 9.0 8.6 Alkaline Phosphatase 82 62 Aspartate Amino Transf (AST/SGOT) 16 12 Alanine Aminotransferase (ALT/SGPT) 19 16 Total Bilirubin 0.4 0.2 Sodium Level 139 141 Potassium Level 3.7 4.3 Chloride Level 107 108 Carbon Dioxide Level 26.1 25.2 Anion Gap 6 8 Estimat Glomerular Filtration Rate 67 78 Result Diagram: 02/19/1743102/19/17431 Assessment and Plan Assessment and Plan Epistaxis, currently packed. Spoke with Dr Nam. He will take the patient to the OR later today to remove packing and control epistaxis under anesthesia. Please keep NPO. Jorge A Verde MD Feb 19, 2017 07:05
[2017-02-19] MEDS: ceFAZolin 1,000 MG/NS 100 ML IV SCH ×4 (08:49→15:28)
[2017-02-19] MEDS: MORPHINE SULFATE 2 MG/ML INJ IV PRN ×2 (08:49→12:22)
[2017-02-19] MEDS: DOCUSATE SODIUM 50 MG/SENNA 8.6 MG TAB PO SCH ×2 (09:00→23:02)
[2017-02-19] MEDS: SODIUM CHLORIDE 0.9% FLUSH 10 ML FLUSH IV FLUSH SCH ×2 (09:00→20:13)
[2017-02-19] MEDS: SODIUM CHLOR 0.9% 1000 ML INJ 1,000 ML IV SCH ×3 (10:00→20:13)
--- NOTE | 2017-02-19 10:29 | EKG ---
Date Performed: 02/18/2017 Time Performed: 23:41:35 PTAGE: 66 years EKG: Sinus rhythm WITH OCCASIONAL ECTOPIC PREMATURE COMPLEXES BORDERLINE ECG Compared to PREVIOUS TRACING sinus rate has increased, PACs are new PREVIOUS TRACIN02/13/2017 07. 56 DOCTOR: Sekou Ramírez Interpretating Date/Time 02/19/2017 10:27:29
[2017-02-19] MEDS ORDERED: SUCCINYLCHOLINE CHLORIDE 100 MG/5 ML SYRINGE IV PUSH ONE (12:00)
[2017-02-19] MEDS ORDERED: DEXAMETHASONE SOD PHOS 4 MG/ML VIAL IV ONE (12:00)
[2017-02-19] MEDS ORDERED: PHENYLEPH/NS 1000 MCG/10 ML SYR IV ONE (12:00)
[2017-02-19] MEDS ORDERED: LIDOCAINE HCL 1% PF 5 ML AMPULE OTHER ONE (12:00)
[2017-02-19] MEDS ORDERED: ONDANSETRON HCL 4 MG/2 ML VIAL IV PUSH ONE (12:00)
[2017-02-19] MEDS ORDERED: ePHEDrine/NS 25 MG/5 ML SYR IV ONE (12:00)
[2017-02-19] MEDS ORDERED: PROPOFOL 200 MG/20 ML AMP IV ONE (12:00)
[2017-02-19] MEDS ORDERED: ENALAPRILAT 1.25 MG/ML VIAL IV PUSH PRN (14:00)
--- NOTE | 2017-02-19 14:39 | HHI.PR ---
Subjective Remarks Resting in bed having nasal pack in place Plan to go to our this afternoon by the ENT Denied chest pain short of breath fever or chills Blood pressure is not optimized will add Vasotec iv as needed Objective Vitals Vital Signs Date Time Temp Pulse Resp B/P (MAP) Pulse Ox O2 Delivery O2 Flow Rate FiO2 02/19/17 12:00 83 02/19/17 12:00 98.7 90 19 161/73 (102) 93 02/19/17 10:00 83 02/19/17 08:00 97 02/19/17 08:00 98.4 97 16 166/67 (100) 93 02/19/17 07:00 95 Room Air 02/19/17 06:00 91 02/19/17 04:00 90 02/19/17 04:00 98.8 90 12 151/70 (97) 95 02/19/17 02:00 91 02/19/17 00:30 02/19/17 00:03 90 15 146/67 (93) 97 Room Air 02/19/17 00:00 94 02/19/17 00:00 98.7 91 20 168/73 (104) 95 02/19/17 00:00 94 Room Air 02/18/17 23:45 96 17 166/96 (119) 97 Room Air 02/18/17 21:11 125 15 02/18/17 21:11 125 18 137/70 (92) 95 Room Air 02/18/17 20:47 98.4 127 22 153/70 (97) 95 Room Air I/O 02/18/17 02/18/17 02/18/17 02/19/17 02/19/17 02/19/17 07:00 15:00 23:00 07:00 15:00 23:00 Intake Total 1000 ml 0 ml Output Total 0 ml Balance 1000 ml 0 ml Intake Oral 0 ml IV Total 1000 ml Output Stool Total 0 ml # Voids 1 Result Diagram: 02/19/1743102/19/17431 Objective Remarks - GENERAL: This is a well-nourished, well-developed patient, in no apparent distress. SKIN: No rashes, warm and dry HEAD: Atraumatic. Normocephalic. EYES: Pupils equal round and reactive. Extraocular motions intact. No scleral icterus. ENT: Nasal pack in place NECK: Trachea midline. Supple CARDIOVASCULAR: Regular rate and rhythm without murmurs, gallops, or rubs. RESPIRATORY: Fair air entry bilaterally. No wheezes, rales, or rhonchi. GASTROINTESTINAL: Abdomen soft, non-tender, nondistended. Positive bowel sounds MUSCULOSKELETAL: Extremities without clubbing, cyanosis, or edema. Pedal pulses appreciated NEUROLOGICAL: Awake and alert. Moves all extremity. Normal speech.no focal neurological deficit A/P Problem List: (1) H/O sinus surgery ICD Code: Z98.890 - Other specified postprocedural states Status: Acute (2) Epistaxis, recurrent ICD Code: R04.0 - Epistaxis Status: Acute (3) HTN (hypertension) ICD Code: I10 - Essential (primary) hypertension (4) Leukocytosis ICD Code: D72.829 - Elevated white blood cell count, unspecified (5) Dehydration ICD Code: E86.0 - Dehydration Assessment and Plan 1. H/o Sinus Sx: s/p sinus surgery 02/13/[address] Nam w/ multiple episodes of epistaxis. 2. Epistaxis: Recurrent. S/p nasal packing placed and replaced, seen in ER on 02/18/17 for similar complaints, now w/ recurrent epistaxis, nasal packing replaced again. Dr. Verde consulted by ER physician, plan for surgical exploration by Dr. Nam today. Keep NPO, IVF. admit to ICU for close monitoring in light of significant amount of epistaxis and uncontrolled bleeding , now stabilized. 3. HTN: BP 160's on arrival, likely secondary to discomfort, nausea/vomiting from epistaxis, optimize BP control to avoid further bleeding. 4. Leukocytosis: WBC 14.9, likely secondary to stress response, no obvious infection. Afebrile. CXR w/ no acute findings, images reviewed by me. 5. Dehydration: GFR 67, BUN 21. IVF for hydration, repeat labs in a.m. 6. DVT Prophylaxis: Pharmacologic contraindications secondary to active bleeding. 02/19: Continue current care, plan for surgical exploration within next few hours by Dr. Nam, monitor H&H James Aaron MD Feb 19, 2017 14:39
[2017-02-19] MEDS ORDERED: ACETAMINOPHEN 1000 MG/100 ML 100 ML IV ONE (16:39)
[2017-02-19] MEDS ORDERED: THROMBIN (TOPICAL) 20,000 UNIT SPRAY KIT ONE (16:47)
[2017-02-19] MEDS ORDERED: OXYMETAZOLINE HCL 0.05% 15 ML NASAL SPRAY ONE (16:47)
[2017-02-19] MEDS ORDERED: GELATIN POWDER 1 GM PACKET ONE (16:47)
[2017-02-19] MEDS ORDERED: LIDOCAINE 1%/EPINEPHrine 1:100,000 SOLN 20 ML VIAL ONE (16:47)
[2017-02-19] MEDS ORDERED: GELFOAM SIZE 100 ONE (16:48)
[2017-02-19] MEDS ORDERED: DO NOT ADM ANY ANTICOAGULANT DRUGS PRN (17:54)
[2017-02-19] MEDS ORDERED: LACTATED RINGER'S 1000 ML INJ 1,000 ML IV SCH (19:15)
[2017-02-19] MEDS ORDERED: AMPICILLIN/SULBAC 1500 MG/NS 100 ML IV ONE ×2 (19:15)
[2017-02-20] VITALS: BP 117/58; PULSE 64; RESP 12; TEMP 97.4; O2SAT 95
[2017-02-20 02:00] VITALS: PULSE 62
[2017-02-20] MEDS: ceFAZolin 1,000 MG/NS 100 ML IV SCH ×4 (03:28→09:48)
[2017-02-20 04:00] VITALS: BP 108/54; PULSE 54; PULSE 55; RESP 13; TEMP 97.4; O2SAT 98
[2017-02-20 06:00] VITALS: PULSE 59
[2017-02-20] MEDS: SODIUM CHLORIDE 0.9% FLUSH 10 ML FLUSH IV FLUSH SCH (09:00)
[2017-02-20 12:00] VITALS: BP 114/66; PULSE 83; RESP 16; TEMP 97.8; O2SAT 100
--- NOTE | 2017-02-20 13:55 | HHI.PR ---
Subjective Remarks Doing well she just had very tiny spots of serous fluid from the nose but no bleeding Status post surgery by ENT doctor Cyril Objective Vitals Vital Signs Date Time Temp Pulse Resp B/P (MAP) Pulse Ox O2 Delivery O2 Flow Rate FiO2 02/20/17 12:00 83 02/20/17 12:00 97.8 83 16 114/66 (82) 100 02/20/17 07:00 100 Face Tent 40 02/20/17 06:00 59 02/20/17 04:00 55 02/20/17 04:00 97.4 54 13 108/54 (72) 98 02/20/17 02:00 62 02/20/17 00:00 97.4 64 12 117/58 (77) 95 02/20/17 00:00 64 02/19/17 22:00 70 02/19/17 21:40 100 Face Tent 02/19/17 20:00 84 02/19/17 20:00 98.8 84 20 124/58 (80) 95 02/19/17 19:00 95 Face Tent 40 02/19/17 18:15 97 16 112/53 (72) 93 Room Air 02/19/17 18:00 96 02/19/17 18:00 99 16 104/52 (69) 92 Room Air 02/19/17 17:49 99.2 103 16 111/52 (71) 100 Room Air 02/19/17 16:00 87 02/19/17 16:00 99.7 87 23 155/70 (98) 93 02/19/17 14:00 89 I/O 02/19/17 02/19/17 02/19/17 02/20/17 02/20/17 02/20/17 07:00 15:00 23:00 07:00 15:00 23:00 Intake Total 0 ml 1080 ml 420 ml Output Total 0 ml 100 ml 0 ml Balance 0 ml 980 ml 420 ml Intake Oral 0 ml 480 ml 420 ml IV Total 0 ml Other 600 ml Output Urine Total 0 ml Stool Total 0 ml 0 ml Estimated Blood Loss 100 ml # Voids 1 2 2 # Bowel Movements 0 Result Diagram: 02/19/1743102/19/17431 Objective Remarks - GENERAL: This is a well-nourished, well-developed patient, in no apparent distress. SKIN: No rashes, warm and dry HEAD: Atraumatic. Normocephalic. EYES: Pupils equal round and reactive. Extraocular motions intact. No scleral icterus. ENT: Nostrils looks dry and clean NECK: Trachea midline. Supple CARDIOVASCULAR: Regular rate and rhythm without murmurs, gallops, or rubs. RESPIRATORY: Fair air entry bilaterally. No wheezes, rales, or rhonchi. GASTROINTESTINAL: Abdomen soft, non-tender, nondistended. Positive bowel sounds MUSCULOSKELETAL: Extremities without clubbing, cyanosis, or edema. Pedal pulses appreciated NEUROLOGICAL: Awake and alert. Moves all extremity. Normal speech.no focal neurological deficit A/P Problem List: (1) H/O sinus surgery ICD Code: Z98.890 - Other specified postprocedural states Status: Acute (2) Epistaxis, recurrent ICD Code: R04.0 - Epistaxis Status: Acute (3) HTN (hypertension) ICD Code: I10 - Essential (primary) hypertension (4) Leukocytosis ICD Code: D72.829 - Elevated white blood cell count, unspecified (5) Dehydration ICD Code: E86.0 - Dehydration Assessment and Plan 1. H/o Sinus Sx: s/p sinus surgery 02/13/[address] Nam w/ multiple episodes of epistaxis. 2. Epistaxis: Recurrent. S/p nasal packing placed and replaced, seen in ER on 02/18/17 for similar complaints, now w/ recurrent epistaxis, nasal packing replaced again. Dr. Verde consulted by ER physician, plan for surgical exploration by Dr. Nam today. Keep NPO, IVF. admit to ICU for close monitoring in light of significant amount of epistaxis and uncontrolled bleeding , now stabilized. 3. HTN: BP 160's on arrival, likely secondary to discomfort, nausea/vomiting from epistaxis, optimize BP control to avoid further bleeding. 4. Leukocytosis: WBC 14.9, likely secondary to stress response, no obvious infection. Afebrile. CXR w/ no acute findings, images reviewed by me. 5. Dehydration: GFR 67, BUN 21. IVF for hydration, repeat labs in a.m. 6. DVT Prophylaxis: Pharmacologic contraindications secondary to active bleeding. 02/19: Continue current care, plan for surgical exploration within next few hours by Dr. Nam, monitor H&H 02/20: Status post surgery by Dr. Nam, discharge once cleared by him James Aaron MD Feb 20, 2017 13:55
[2017-02-20 14:00] VITALS: PULSE 63
--- NOTE | 2017-02-21 10:38 | HHI.PR ---
Addendum to Inpatient Note Additional Information Addendum: Patient was discharged later yesterday by an order given by the ENT She wasn't placed on antibiotic I will contact the ENT to verify any need for prophylactic antibiotic Discharge patient to home Condition on discharge: Improved Regular Diet as tolerated Ad Karyn activity Rx written: We placed a call for the ENT specialist, he reported patient already has antibiotic from before and she is good for discharge and no need for prescription Follow-up with primary care physician, ENT as directed James Aaron MD Feb 21, 2017 10:38
== END 2017-02-20 15:42 | disposition home or self-care (01) | DRG 151 ==
LOC: NEPC 20:46 → NEDA 23:00 → N03A 02-19 00:19
PROVIDERS: ADMIT Hospitalist; ATTEND Hospitalist
PROC: 2Y41X5Z Packing of Nasal Region using Packing Material (ICD-10-PCS; principal; 2017-02-18)
DX: R04.0 Epistaxis (principal); M41.9 Scoliosis, unspecified; I10 Essential (primary) hypertension; E03.9 Hypothyroidism, unspecified; E78.5 Hyperlipidemia, unspecified; I49.1 Atrial premature depolarization; M19.90 Unspecified osteoarthritis, unspecified site; Z96.651 Presence of right artificial knee joint; E86.0 Dehydration; D72.829 Elevated white blood cell count, unspecified
CPT/HCPCS: 71010; 80053; 85025; 85610; 85730; 93005; J0131; J0295; J0330; J0690; J1100; J2270; J2370; J2405; J3010; J7030; J7120

== ENCOUNTER → 2017-09-17 | Outpatient (CLI) | payer OTHER ==
[~2017-09-17] MED LIST changes: +ASPI1TAB57 PO; +CRANCAP2 PO; +FEXO1TAB97 PO; +LEVO.125 PO; +LEVO5TAB8 PO; +MULT-65 PO; +OMEG100046 PO; +VITA250T3 PO
== END ==
LOC: CPRE 08:50
PROVIDERS: ATTEND Orthopaedic Surgery
DX: M17.12 Unilateral primary osteoarthritis, left knee (principal); M79.609 Pain in unspecified limb

== ENCOUNTER → 2017-09-28 | Outpatient (CLI) | payer OTHER ==
[~2017-09-28] MED LIST changes: -AMOX500T PO; -HYDR-3533 PO; -LEVO.125 PO; -LEVOTAB PO; -ZOFR4TAB3 SL
--- NOTE | 2017-09-28 14:48 | EKG ---
Date Performed: 09/28/2017 Time Performed: 07:27:20 PTAGE: 67 years EKG: Sinus rhythm . Possible anterior infarct - age undetermined Abnormal ECG Since the PREVIOUS TRACING , no significant change noted PREVIOUS TRACIN02/18/2017 23.41 DOCTOR: Sekou Ramírez Interpretating Date/Time 09/28/2017 14:47:26
== END ==
LOC: HCAV 07:17
PROVIDERS: ATTEND Orthopaedic Surgery
DX: Z01.818 Encounter for other preprocedural examination (principal); M79.609 Pain in unspecified limb; M17.12 Unilateral primary osteoarthritis, left knee
CPT/HCPCS: 93005

== ENCOUNTER 2017-10-01 07:00 | Inpatient (IN) | payer OTHER, MEDICARE ==
[~2017-10-01] VITALS: Ht 166.4 cm; Wt 93.0 kg
[2017-10-09] MEDS ORDERED: CHLORHEXIDINE GLUCONATE 2 % 1 PACK (2 CLOTHS) TOPICAL PRN (05:30)
[2017-10-09] MEDS ORDERED: POVIDONE IODINE 5% (ANTISEPSIS KIT) 4 APPLICATIONS EACH NARE PRN (05:30)
[2017-10-09] MEDS ORDERED: METOPROLOL TARTRATE 25 MG TAB PO PRN (05:30)
[2017-10-09] MEDS ORDERED: CHLORHEXIDINE GLUCONATE 4% SOLN 120 ML BTL TOPICAL SCH (05:30)
[2017-10-09] MEDS ORDERED: ceFAZolin 2 GM PREMIX 50 ML IV SCH (05:30)
[2017-10-09] MEDS ORDERED: SODIUM CHLORID 0.9% 500 ML IV PRN (05:30)
[2017-10-09] MEDS ORDERED: LACTATED RINGER'S 1000 ML IV PRN (05:30)
[2017-10-09] MEDS ORDERED: GENTAMICIN SULFATE 80 MG/2 ML VIAL ONE (06:03)
[2017-10-09 06:07] VITALS: PULSE 61
[2017-10-09] MEDS ORDERED: MIDAZOLAM HCL 5 MG/5 ML VIAL ONE (06:10)
[2017-10-09] MEDS ORDERED: BUPIVACAINE LIPOSOME PF 1.3% 20 ML VIAL ONE ×2 (06:10→06:18)
[2017-10-09] MEDS ORDERED: MIDAZOLAM HCL 5 MG/ML VIAL (1 ML) IV PRN (06:15)
[2017-10-09] MEDS ORDERED: PROPOFOL 500 MG/50 ML INJ 0 ML ONE (06:23)
[2017-10-09] MEDS ORDERED: FAMOTIDINE 20 MG/2 ML VIAL ONE (06:23)
[2017-10-09] MEDS ORDERED: ACETAMINOPHEN 1000 MG/100 ML 100 ML IV ONE (06:23)
[2017-10-09] MEDS ORDERED: BUPIVACAINE PF 0.75% DEX-WATER INJ 2 ML AMP ONE (06:23)
[2017-10-09] MEDS ORDERED: TRANEXAMIC ACID INJ 930 MG in SODIUM CHLORIDE 0.9% INJ 100 ML IV SCH ×2 (07:00→10:00)
[2017-10-09] MEDS ORDERED: EXPAREL PERI-ARTICULAR INJECTION (TOTAL VOL. 100 ML) P-ARTICULR SCH ×2 (07:00)
[2017-10-09] MEDS ORDERED: ZOLPIDEM TARTRATE 5 MG TAB PO PRN (09:15)
[2017-10-09] MEDS ORDERED: TRANEXAMIC ACID INJ 0 MG in SODIUM CHLORIDE 0.9% INJ 100 ML IV SCH (09:15)
[2017-10-09] MEDS ORDERED: ONDANSETRON ODT 4 MG TAB PO PRN (09:15)
[2017-10-09] MEDS ORDERED: MORPHINE SULFATE 4 MG/ML INJ IV PUSH PRN (09:15)
[2017-10-09] MEDS ORDERED: ACETAMINOPHEN/HYDROcodone 325 MG/7.5 MG TAB PO PRN ×2 (09:15)
[2017-10-09] MEDS ORDERED: MAGNESIUM HYDROXIDE SUSP 30 ML CUP PO PRN (09:15)
--- NOTE | 2017-10-09 09:16 | HHI.FF ---
Face to Face Verification Diagnosis: (1) Status post total left knee replacement Physical Therapy Gait training Knee: Total knee, Protocol: Left, Gait training, Full weight bearing Left LE Weight Bearing: WB as tolerated Left LE Range of Motion: Active ROM (Active, active assisted, passive range of motion. Range of motion: 0 extension to 135 of flexion.) Nursing Nursing: Dressing changes Dressing Changes: Daily dressing change, Coverderm/Primapore Additional Instructions Do not remove Dermabond Prineo. I have seen patient Cari Corrigan on 10/09/17. My clinical findings support the need for the requested home health care services because: Ltd mobility - disease progression Limited ability to care for self High risk of falls I certify that my clinical findings support that this patient is homebound because: Post-op weakness Unsteady gait/balance Unsafe to leave home unassisted Magnolia Oliveros MD (Charles) Oct 09, 2017 09:16
[2017-10-09] MEDS ORDERED: HYDR-3580 PO (09:19)
[2017-10-09] MEDS ORDERED: ECASA81 PO (09:19)
--- NOTE | 2017-10-09 09:27 | PD.OP ---
Operative Report Date of Surgery: Oct 09, 2017 Preoperative Diagnosis: (1) Primary osteoarthritis of left knee Postoperative Diagnosis: (1) Primary osteoarthritis of left knee Procedure: Left total knee arthroplasty using [place] Triathlon prosthesis (noncemented) Anesthesia: General endotracheal with supplemental adductor canal block and local with Exparel. Surgeon: Frank Oliveros MD [employer] Librarian(s): KULDIP Acuna Operation and Findings: Indications and Findings: This 67-year-old woman who has had left knee pain for the past 3 years which has been progressively worsening to the point that he can only walk approximately there is no improvement with conservative, nonoperative care including analgesics, nonsteroidal anti-inflammatory agents, therapy, intra-articular corticosteroids and ambulatory aids. Physical findings showed degenerative valgum with tenderness in the lateral compartment, crepitation on range of motion and palpable osteophytes. Imaging studies showed severe osteoarthritis particularly in the lateral compartment which went to [id number] with eburnation and osteophytes. Operative findings: There is severe osteoarthritis in the left knee with loss of articular cartilage and [id number] and erosion of the posterior aspect of the lateral tibial plateau. There is medial compartment disease as well as patellofemoral disease. There are osteophytes are tricompartmental as well. The prosthesis used was a [place] Triathlon prosthesis. The femur was a size 6, cruciate retaining, uncemented. The tibial baseplate was a size 6 Tritanium with a 9 mm, X3 polyethylene, cruciate retaining spacer. The patella was a size 32 mm asymmetric Tritanium backed. The patient was brought to the clean-air operating suite. A spinal anesthetic was administered as well as a regional anesthetic by adductor canal block. The position was supine with a small bolster under the hip on the operative side. A pneumatic tourniquet was applied to the upper thigh. The lower extremity was then prepped with alcohol, Hibiclens and ChloraPrep and draped in the usual manner with the knee draped free. An appropriate timeout procedure was carried out. An incision was made from about 3 fingerbreadths above the superior medial pole of patella down the tibial tubercle on the medial side. The incision was deepened through the subcutaneous tissue to the retinacular structures which were exposed medially and laterally. A medial retinacular incision was then made from the superior middle pole of patella down the tibial tubercle and up into the quadriceps tendon splitting it longitudinally and the medial one third. The patella was reflected. The infrapatellar fat pad was debulked. The anterior cruciate ligament was excised. Medial and lateral meniscectomies were initiated. Fenestrations were made in the distal femur and proximal tibia for intramedullary referencing guides. The distal femoral cutting guide and jig were then assembled for a 5, 8 mm cut. When this was fit position and placed cutting block was stabilized with pins. The jig was removed. The distal femoral cut was then completed with the oscillating saw. The sizing guide was then positioned in place along Whitesides line and the epicondylar axis and stabilized with pins. The femoral size was then determined as noted above. The 4-in-1 cutting block was then positioned in place. Anterior and posterior cuts were made followed by posterior and anterior chamfer cuts taking care to prevent injury to ligamentous structures. Osteophytes were then trimmed from the distal femur. A bone plug was then placed into the fenestration of the distal femur. The proximal tibia was then exposed. The medial and lateral meniscectomies were completed. The proximal tibial cutting guide was then positioned in place and stabilized with a pin for rotation. The depth of cut was then verified with a stylus off the lateral side. The cutting block was stabilized with pins. The jig was removed. The depth of cut was then verified and adjusted appropriately with the use of the spacer block. The proximal tibial cut was then made with the oscillating saw taking care to prevent injury to neurovascular and ligamentous structures. Proximal tibial bone was removed. Local anesthetic was administered with Exparel in the posterior capsule. The tibial baseplate trial was then positioned in place. After verifying the appropriate size, the base plate trial was positioned in place along with its spacer. The femoral component was then impacted into place. The alignment was checked. The tibial baseplate was then pinned in place on the tibia. Attention was directed to the patella. The patella drill guide was positioned in place for the appropriate sized patella. Patellar drilling was then carried out. The trial patella was positioned in place. The knee was taken through a range of motion which was easily 0 extension to 135. The patella trial was removed. The femoral drill holes were made. The femoral trials were removed. The tibial spacer was removed. A bone plug was placed into the proximal tibia. The tibial punch was impacted through the proximal tibial punch guide. This was all removed followed by placement of the tibial drill guide. The tibial drill holes were then made. The guide was removed. The cut ends of bone were then cleaned with pulse lavage. The tibial baseplate was then impacted into place and seated appropriately. The spacer was inserted. The the femoral component was then impacted into place and seated appropriately. The patella component was then seated with the patellar vice and tightened appropriately. The knee was taken through a range of motion which was comparable to the previous range of motion with excellent stability in flexion and extension and appropriate patellofemoral tracking. The remainder of the Exparel was then injected throughout the knee as a local anesthetic. Drains were brought out the superior lateral aspect of the suprapatellar pouch. Wound closure then commenced using 0 Vicryl interrupted [id number] sutures for the capsular and fascial structures, 2-0 Vicryl interrupted simple sutures with buried knots for the subcutaneous tissues and 4- 0 Monocryl, continuous subcuticular closure for the skin. The wound was then dressed with Dermabond Prineo followed by Optifoam silver impregnated dressing. Sterile soft roll with a cooling pad and Dillon bandage from the base of the toes to mid thigh were then applied. Patient was then transferred from the operating room to the recovery room in satisfactory condition having tolerated procedure well. Counts are correct. Specimens: None. Estimated blood loss: 250 mL Magnolia Oliveros MD (Charles) Oct 09, 2017 09:27
[2017-10-09] MEDS ORDERED: DO NOT ADM ANY ANTICOAGULANT DRUGS PRN (09:39)
[2017-10-09] MEDS ORDERED: Post-op Orders (for Pharmacy) XX ONE (09:39)
[2017-10-09] MEDS: LACTATED RINGER'S 1000 ML INJ 1,000 ML IV SCH ×2 (10:00→22:30)
--- NOTE | 2017-10-09 10:37 | RADRPT ---
EXAM DATE: 10/09/2017 10:34 AM EDT AGE/SEX: 67 years / Female INDICATIONS: Post op left knee CLINICAL DATA: This is the patient's initial encounter. Patient reports that signs and symptoms have been present for 1 day and indicates a pain score of 10/10. MEDICAL/SURGICAL HISTORY: Non-responsive. Non-responsive. left knee COMPARISON: No prior exams available for comparison. FINDINGS: Post surgical changes following total knee replacement are noted. Prosthetic components appear to be well seated and satisfactorily aligned. Surgical drain is identified within the joint space. There are no acute bony abnormalities. CONCLUSION: Satisfactory post operative appearance of the left knee following knee replacement. Electronically signed by: Meet Jesus MD 10/09/2017 10:35 AM EDT
[2017-10-09] MEDS ORDERED: *morphine SULFATE 8 MG/ML PERIprocedure ONLY ONE (10:45)
--- NOTE | 2017-10-09 10:47 | PD.CONS ---
HPI Service [facility] ([place], [place])ists Consult Requested By DR ALMODOVAR Reason for Consult MEDICAL MANAGEMENT Primary Care Physician Tangela Jefferson Do, MD Diagnoses: (1) Status post total left knee replacement (2) HTN (hypertension) (3) Primary osteoarthritis of left knee History of Present Illness Patient is a 67-year-old female who underwent left total knee arthroplasty for severe osteoarthritis. Patient underwent the procedure today we have now been consulted to help regarding her medical management. Patient's has history of lumbar surgeries in some hypertension and some thyroid disorder We will follow her throughout the admission for any other issues that may arise. Review of Systems Constitutional: DENIES: Diaphoretic episodes, Fatigue, Fever, Weight gain, Weight loss, Chills, Dizziness, Change in appetite, Night Sweats Endocrine: DENIES: Abnorml menstrual pattern, Heat/cold intolerance, Polydipsia , Polyuria, Polyphagia Eyes: DENIES: Blurred vision, Diplopia, Eye inflammation, Eye pain, Vision loss , Photosensitivity, Double Vision Ears, nose, mouth, throat: DENIES: Tinnitus, Hearing loss, Vertigo, Nasal discharge, Oral lesions, Throat pain, Hoarseness, Ear Pain, Running Nose, Epistaxis, Sinus Pain, Toothache, Odynophagia Respiratory: DENIES: Apneas, Cough, Snoring, Wheezing, Hemoptysis, Sputum production, Shortness of breath Cardiovascular: DENIES: Chest pain, Palpitations, Syncope, Dyspnea on Exertion , PND, Lower Extremity Edema, Orthopnea, Claudication Gastrointestinal: DENIES: Abdominal pain, Black stools, Bloody stools, Constipation, Diarrhea, Nausea, Vomiting, Difficulty Swallowing, Anorexia Genitourinary: DENIES: Abnormal vaginal bleeding, Dysmenorrhea, Dyspareunia Musculoskeletal: COMPLAINS OF: Joint pain, Back pain, DENIES: Muscle aches, Stiffness, Joint Swelling, Neck pain Integumentary: DENIES: Abnormal pigmentation, Pruritus, Rash, Nail changes, Breast masses, Breast skin changes, Nipple discharge Hematologic/lymphatic: DENIES: Bruising, Lymphadenopathy Immunologic/allergic: DENIES: Eczema, Urticaria Neurologic: DENIES: Abnormal gait, Headache, Localized weakness, Paresthesias, Seizures, Speech Problems, Tremor, Poor Balance Psychiatric: DENIES: Anxiety, Confusion, Mood changes, Depression, Hallucinations, Agitation, Suicidal Ideation, Homicidal Ideation, Delusions Except as stated in HPI: all other systems reviewed are Neg Past Family Social History Allergies: Coded Allergies: Sulfa (Sulfonamide Antibiotics) (Verified Allergy, Unknown, Itching, ) Past Medical History Thyroid disorder Osteoarthritis Seasonal allergies Back problems History of tobacco in the past Hyperlipidemia Past Surgical History Tonsillectomy Sinus surgery Lumbar laminectomy lumbar fusion Left great toe fusion Spinal cyst removal Appendectomy Right shoulder spurs surgery Right total knee replacement Reported Medications Reported Meds & Active Scripts Active Hydrocodone-Acetamin 7.5-325 (Hydrocodone/Acetaminophen) 7.5 Mg-325 Mg Tablet 1 Tab PO Q4H PRN Reported Aspirin 81 (Aspirin) 81 Mg Tabdr 81 Mg PO HS Vitamin C (Ascorbic Acid) 250 Mg Tab 250 Mg PO DAILY Fish Oil 1,000 mg Softgel ([place]-3/Dha/Epa/Fish Oil) 1,000 Mg (120 Mg-180 Mg) Capsule 1 Cap PO DAILY NEB Multi-Vitamin Daily (Multiple Vitamin) 1 Tab Tab 1 Tab PO DAILY Cranberry Urinary Comfort (Vitamins C & E) 1 Cap 1 Cap PO DAILY Atorvastatin (Atorvastatin Calcium) 20 Mg Tab 20 Mg PO HS Xyzal (Levocetirizine Dihydrochloride) 5 Mg Tablet 5 Mg PO HS Lisa-D 24 Hour Allergy (Fexofenadine-Pseudoephedrine ER 24 HR) 180-240 Khloe 1 Tab PO DAILY Synthroid (Levothyroxine Sodium) 112 Mcg Tab 112 Mcg PO DAILY Active Ordered Medications Current Medications Lactated Ringer's 1,000 ml @ 30 mls/hr Q24H PRN IV SEE LABEL COMMENTS Last administered on 10/09/17at 05:47; Start 10/09/17 at 05:30; Stop 10/09/17 at 10:35 ; Status DC Sodium Chloride 500 ml @ 30 mls/hr [id number] PRN IV SEE LABEL COMMENTS; Start 04/16 at 05:30; Stop 10/09/17 at 10:35; Status DC Metoprolol Tartrate (Lopressor) 25 mg ENGINE DYNAMOMETER TESTER PRN PO SEE LABEL COMMENTS; Start 10/09/17 at 05:30; Stop 10/12/17 at 05:29 Povidone Iodine (Betadine 5% Antisepsis Kit) 1 applic ENGINE DYNAMOMETER TESTER PRN EACH NARE SEE LABEL COMMENTS Last administered on 10/09/17at 05:47; Start 10/09/17 at 05:30 ; Stop 10/12/17 at 05:29 Chlorhexidine Gluconate (Chlorhexidine 2% Cloth) 3 pack ENGINE DYNAMOMETER TESTER PRN TOPICAL SEE LABEL COMMENTS Last administered on 10/09/17at 05:30; Start 10/09/17 at 05:30 ; Stop 10/12/17 at 05:29 Chlorhexidine Gluconate (Hibiclens 4% Top Soln) 1 applic ONCE TOPICAL Last administered on 10/09/17at 05:47; Start 10/09/17 at 05:30; Stop 10/12/17 at 05:29 Cefazolin Sodium/ Dextrose 50 ml @ 100 mls/hr ENGINE DYNAMOMETER TESTER IV Last administered on 10/09/17at 07:09; Start 10/09/17 at 05:30; Stop 10/09/17 at 10:36; Status DC Tranexamic Acid 930 mg/Sodium Chloride 109.3 ml @ 200 mls/hr ONCE IV Last administered on 10/09/17at 07:01; Start 10/09/17 at 07:00; Stop 10/09/17 at 13:00 Tranexamic Acid 930 mg/Sodium Chloride 109.3 ml @ 200 mls/hr ONCE IV Last administered on 10/09/17at 10:30; Start 10/09/17 at 10:00; Stop 10/09/17 at 11:00 Bupivacaine Liposome 20 ml/ Sodium Chloride 100 ml @ 200 mls/hr ONCE P- ARTICULR Last administered on 10/09/17at 07:22; Start 10/09/17 at 07:00; Stop at 13:00 Gentamicin Sulfate (Gentamicin Inj) 240 mg STK-MED ONCE .ROUTE Last administered on 10/09/17at 07:22; Start 10/09/17 at 06:03; Stop 10/09/17 at 06:04 ; Status DC Midazolam HCl (Versed Inj) 5 mg STK-MED ONCE .ROUTE Last administered on at 06:15; Start 10/09/17 at 06:10; Stop 10/09/17 at 06:11; Status DC Midazolam HCl (Versed Inj) 4 mg ENGINE DYNAMOMETER TESTER PRN IV GIVE IN OR HOLDING; Start at 06:15; Stop 10/09/17 at 22:00 Bupivacaine Liposome (Exparel Pf 1.3% Inj) 20 ml STK-MED ONCE .ROUTE ; Start 04/16 at 06:10; Stop 10/09/17 at 06:11; Status DC Bupivacaine Liposome (Exparel Pf 1.3% Inj) 20 ml STK-MED ONCE .ROUTE ; Start 04/16 at 06:18; Stop 10/09/17 at 06:19; Status DC Acetaminophen 100 ml @ As Directed STK-MED ONCE IV ; Start 10/09/17 at 06:23; Stop 10/09/17 at 06:24; Status DC Propofol 0 ml @ As Directed STK-MED ONCE .ROUTE ; Start 10/09/17 at 06:23; Stop 10/09/17 at 06:24; Status DC Fentanyl Citrate (fentaNYL INJ) 100 mcg STK-MED ONCE .ROUTE ; Start 10/09/17 at 06:23; Stop 10/09/17 at 06:24; Status DC Famotidine (Pepcid Inj) 20 mg STK-MED ONCE .ROUTE ; Start 10/09/17 at 06:23; Stop 10/09/17 at 06:24; Status DC Bupivacaine HCl/ Dextrose (Marcaine Spinal Inj) 2 ml STK-MED ONCE .ROUTE ; Start 10/09/17 at 06:23; Stop 10/09/17 at 06:24; Status DC Fentanyl Citrate (fentaNYL INJ) 200 mcg STK-MED ONCE .ROUTE ; Start 10/09/17 at 06:46; Stop 10/09/17 at 06:47; Status DC Lactated Ringer's 1,000 ml @ 80 mls/hr [id number] IV Last administered on at 10:00; Start 10/09/17 at 10:00 Cefazolin Sodium 1000 mg/Sodium Chloride 100 ml @ 200 mls/hr Q6H IV ; Start 04/16 at 13:00; Stop 10/10/17 at 01:29 Miscellaneous Information (Misc Post-op Orders (for Pharmacy)) STAT ONCE XX ; Start 10/09/17 at 09:39; Stop 10/09/17 at 10:15; Status DC Morphine Sulfate (Morphine Inj) 4 mg Q3H PRN IV PUSH BREAKTHROUGH PAIN; Start 10/09/17 at 09:15 Acetaminophen/ Hydrocodone Bitart ([place] 7.5-325 Mg) 1 tab Q4H PRN PO PAIN LESS THAN 5 ON SCALE; Start 10/09/17 at 09:15 Acetaminophen/ Hydrocodone Bitart ([place] 7.5-325 Mg) 2 tab Q4H PRN PO PAIN SCALE 5 TO 10; Start 10/09/17 at 09:15 Ketorolac Tromethamine (Toradol Inj) 15 mg Q6H IVP ; Start 10/09/17 at 11:00; Stop 10/11/17 at 05:01 Tranexamic Acid / Sodium Chloride 100 ml @ 200 mls/hr UNSCH IV ; Start at 09:15; Stop 10/09/17 at 10:13; Status DC Ondansetron HCl (Zofran Odt) 4 mg Q6H PRN PO NAUSEA OR VOMITING; Start at 09:15 Docusate Sodium (Colace) 100 mg BID PO ; Start 10/10/17 at 21:00 Zolpidem Tartrate (Ambien) 5 mg HS PRN PO SLEEP; Start 10/09/17 at 09:15 Magnesium Hydroxide (Milk Of Magnesia Liq) 30 ml DAILY PRN PO CONSTIPATION; Start 10/09/17 at 09:15 Aspirin (Ecotrin Ec) 81 mg BID PO ; Start 10/10/17 at 09:00 Atorvastatin Calcium (Lipitor) 20 mg HS PO ; Start 10/09/17 at 21:00 Levothyroxine Sodium (Synthroid) 112 mcg DAILY@0600 PO ; Start 10/10/17 at 06:00 Ascorbic Acid (Vitamin C) 250 mg DAILY PO ; Start 10/10/17 at 09:00 Loratadine/ Pseudoephedrine Sulfate (Claritin-D 12 Hr) 1 tab Q12HR PO ; Start at 09:00 Patient Own Medication PT OWN MED: Levocetirizine Dihydrochlor... HS PO ; Start 10/09/17 at 21:00 Multivitamins (Theragran) 1 tab DAILY PO ; Start 10/10/17 at 09:00 Non-Formulary Medication 1 cap DAILY NEB PO ; Start 10/10/17 at 08:00; Stop at 08:00; Status DC Non-Formulary Medication 1 cap DAILY PO ; Start 10/10/17 at 09:00; Stop at 09:00; Status DC Miscellaneous Information ([facility] [place] [facility] [place]) ALL NURSING DEPARTME... UNSCH PRN .XX SEE LABEL COMMENTS; Start 10/09/17 at 09:39; Stop 10/10/17 at 09: 38 Family History Some hypertension in the family Osteoarthritis in the family Social History History of tobacco quit in 1988 Denies any illicits Occasional alcoholic beverage Physical Exam Vital Signs Vital Signs Date Time Temp Pulse Resp B/P (MAP) Pulse Ox O2 Delivery O2 Flow Rate FiO2 10/09/17 10:12 63 17 128/55 (79) 95 Nasal Cannula 2 10/09/17 10:00 62 12 134/63 (86) 97 Nasal Cannula 2 10/09/17 09:45 88 12 121/62 (81) 96 Nasal Cannula 2 10/09/17 09:42 97.8 91 15 107/78 (88) 97 Nasal Cannula 2 10/09/17 06:07 97 Nasal Cannula 2 10/09/17 06:07 61 10/09/17 05:39 97.7 63 18 150/67 (94) 97 Physical Exam GENERAL: This is a well-nourished, well-developed patient, in no apparent distress. Left lower extremity is currently in CPM machine SKIN: No rashes, ecchymoses or lesions. Cool and dry. HEAD: Atraumatic. Normocephalic. No temporal or scalp tenderness. EYES: Pupils equal round and reactive. Extraocular motions intact. No scleral icterus. No injection or drainage. ENT: Nose without bleeding, purulent drainage or septal hematoma. Throat without erythema, tonsillar hypertrophy or exudate. Uvula midline. Airway patent. NECK: Trachea midline. No JVD or lymphadenopathy. Supple, nontender, no meningeal signs. CARDIOVASCULAR: Regular rate and rhythm without murmurs, gallops, or rubs. S1- S2 no S3 or S4 RESPIRATORY: Clear to auscultation. Breath sounds equal bilaterally. No wheezes , rales, or rhonchi. GASTROINTESTINAL: Abdomen soft, non-tender, nondistended. No hepato-splenomegaly , or palpable masses. No guarding. MUSCULOSKELETAL: Extremities without clubbing, cyanosis, or edema. No joint tenderness, effusion, or edema noted. No calf tenderness. Negative Homans sign bilaterally. Left lower extremity is in CPM machine dressed with drain in place NEUROLOGICAL: Awake and alert. Cranial nerves II through XII intact. Motor and sensory grossly within normal limits. Five out of 5 muscle strength in all muscle groups. Normal speech. Insight and judgment is good Mood and behavior is appropriate Imaging Last Impressions Knee X-Ray 10/09/17 0910 Impressions: CONCLUSION: Satisfactory post operative appearance of the left knee following knee replacem ent. Assessment and Plan Problem List: (1) Status post total left knee replacement ICD Code: Z96.652 - Presence of left artificial knee joint (2) HTN (hypertension) ICD Code: I10 - Essential (primary) hypertension (3) Primary osteoarthritis of left knee ICD Code: M17.12 - Unilateral primary osteoarthritis, left knee Assessment and Plan Status post left total knee replacement for severe osteoarthritis will defer to orthopedic surgery for this and pain control Hyperlipidemia continue on statin Osteoarthritis pain control Chronic back pain pain control Seasonal allergies home medications Will check thyroid panel with AM labs with CBC CMP TSH and a free T4 and hemoglobin A1c Physical therapy and Occupational Therapy as needed Sounds like patient will more likely be discharged tomorrow to home with home health care Code Status Full code Discussed Condition With RN and patient Juanpablo Livingston DO Oct 09, 2017 10:47
[2017-10-09] MEDS ORDERED: PILL SPLITTER OTHER PRN (11:00)
[2017-10-09 12:00] VITALS: BP 137/65; PULSE 58; RESP 18; TEMP 97.2; O2SAT 95
[2017-10-09] MEDS ORDERED: ROCURONIUM INJ 50 MG/5 ML SYRINGE IV PUSH ONE (12:00)
[2017-10-09] MEDS ORDERED: ePHEDrine/NS 25 MG/5 ML SYRINGE IV ONE (12:00)
[2017-10-09] MEDS ORDERED: DEXAMETHASONE SOD PHOS 4 MG/ML VIAL IV ONE (12:00)
[2017-10-09] MEDS ORDERED: ONDANSETRON HCL 4 MG/2 ML VIAL IV ONE (12:00)
[2017-10-09] MEDS ORDERED: NEOSTIGMINE 5 MG/5 ML SYRINGE IV PUSH ONE (12:00)
[2017-10-09] MEDS ORDERED: LACTATED RINGER'S 1000 ML INJ 1,000 ML IV ONE (12:00)
[2017-10-09] MEDS ORDERED: GLYCOPYRROLATE 1 MG/5 ML SYRINGE IV PUSH ONE (12:00)
[2017-10-09] MEDS ORDERED: KETOROLAC TROMETHAMINE 30 MG/ML (IVP) VIAL IV PUSH ONE (12:00)
[2017-10-09] MEDS ORDERED: LIDOCAINE HCL 1% PF 5 ML SYRINGE OTHER ONE (12:00)
[2017-10-09] MEDS ORDERED: PROPOFOL 200 MG/20 ML AMP IV ONE (12:00)
[2017-10-09] MEDS: KETOROLAC TROMETHAMINE 30 MG/ML (IVP) VIAL IVP SCH ×2 (12:04→17:36)
[2017-10-09 13:22] VITALS: O2SAT 99
[2017-10-09 16:00] VITALS: BP 115/59; PULSE 70; RESP 18; TEMP 97.4; O2SAT 95
[2017-10-09 19:55] VITALS: BP 99/51; PULSE 67; RESP 16; TEMP 98.4; O2SAT 94
[2017-10-09] MEDS ORDERED: LEVOCETIRIZINE DIHYDROCHLORIDE 5 MG PO SCH (21:00)
[2017-10-09] MEDS ORDERED: ATORVASTATIN 20 MG TAB PO SCH (21:00)
[2017-10-10 01:00] VITALS: BP 111/53; PULSE 70; RESP 16; TEMP 98.3; O2SAT 92
[2017-10-10] MEDS: KETOROLAC TROMETHAMINE 30 MG/ML (IVP) VIAL IVP SCH ×3 (01:31→10:47)
[2017-10-10 04:30] VITALS: BP 111/55; PULSE 57; RESP 16; TEMP 97.4; O2SAT 97
[2017-10-10 05:57] LABS: AUTOMATED NEUTROPHIL # 11.9 TH/MM3 (1.8-7.7); BASOPHIL % 0.1 % (0.0-2.0); EOSINOPHIL % 0.1 % (0.0-4.0); HEMATOCRIT 33.4 % (35.0-46.0); HEMOGLOBIN 11.2 GM/DL (11.6-15.3); LYMPH % 8.5 % (9.0-44.0); LYMPHOCYTE # 1.2 TH/MM3 (1.0-4.8); MEAN CELL VOLUME 91.1 FL (80.0-100.0); MEAN CORPUSCULAR HEMOGLOBIN 30.7 PG (27.0-34.0); MEAN CORPUSCULAR HGB CONC 33.7 % (32.0-36.0); MEAN PLATELET VOLUME 7.9 FL (7.0-11.0); MONO % 6.5 % (0.0-8.0); MONOCYTE # 0.9 TH/MM3 (0-0.9); NEUT % 84.8 % (16.0-70.0); PLATELET COUNT 263 TH/MM3 (150-450); RED BLOOD COUNT 3.67 MIL/MM3 (4.00-5.30); RED CELL DISTRIBUTION WIDTH 12.5 % (11.6-17.2); WHITE BLOOD COUNT 14.1 TH/MM3 (4.0-11.0)
[2017-10-10] MEDS ORDERED: LEVOTHYROXINE SODIUM 112 MCG TAB PO SCH (06:00)
[2017-10-10 06:12] LABS: AST (GOT) 13 U/L (15-37); BICARBONATE 25.5 MEQ/L (21.0-32.0); BLOOD UREA NITROGEN 13 MG/DL (7-18); CALCIUM 8.7 MG/DL (8.5-10.1); CHLORIDE 104 MEQ/L (98-107); GLUCOSE,RANDOM 100 MG/DL (74-106); MAGNESIUM 2.2 MG/DL (1.5-2.5); SODIUM (NA) 140 MEQ/L (136-145)
[2017-10-10 06:21] LABS: ALKALINE PHOSPHATASE 76 U/L (45-117); ALT (GPT) 19 U/L (10-53); CREATININE 0.83 MG/DL (0.50-1.00); FREE T4 1.63 NG/DL (0.76-1.46); GLOMERULAR FILTRATION RATE 68 ML/MIN (>89); PHOSPHORUS 4.2 MG/DL (2.5-4.9); TOTAL BILIRUBIN ADULT 0.4 MG/DL (0.2-1.0)
--- NOTE | 2017-10-10 07:12 | PD.ORT.PN ---
Subjective Post Op Day #: 1 Subjective Remarks She is doing well. She has minimal complaints related to her knee. She has been walking. Range of Motion 0 extension to 90 of flexion. Distance Walked 60 feet with physical therapy. Objective Vitals Vital Signs Date Time Temp Pulse Resp B/P (MAP) Pulse Ox O2 Delivery O2 Flow Rate FiO2 10/10/17 01:00 98.3 70 16 111/53 (72) 92 10/09/17 20:18 21 10/09/17 19:55 98.4 67 16 99/51 (67) 94 10/09/17 19:24 Room Air 10/09/17 16:00 97.4 70 18 115/59 (77) 95 10/09/17 13:22 99 Nasal Cannula 2.00 10/09/17 12:00 97.2 58 18 137/65 (89) 95 10/09/17 10:12 63 17 128/55 (79) 95 Nasal Cannula 2 10/09/17 10:00 62 12 134/63 (86) 97 Nasal Cannula 2 10/09/17 09:45 88 12 121/62 (81) 96 Nasal Cannula 2 10/09/17 09:42 97.8 91 15 107/78 (88) 97 Nasal Cannula 2 I/O 10/09/17 10/09/17 10/09/17 10/10/17 10/10/17 10/10/17 07:00 15:00 23:00 07:00 15:00 23:00 Intake Total 2100 ml 820 ml 200 ml Output Total 280 ml 145 ml 40 ml Balance 1820 ml 675 ml 160 ml Intake Oral 820 ml IV Total 400 ml 200 ml Other 1700 ml Output Drainage Total 30 ml 145 ml 40 ml Estimated Blood Loss 250 ml # Voids 1 Result Diagram: 10/10/17 0403 10/10/17 0403 Imaging Last 24 hours Impressions Knee X-Ray 10/09/17 0910 Signed Impressions: CONCLUSION: Satisfactory post operative appearance of the left knee following knee replacem ent. Objective Remarks She is resting comfortably, supine in bed, in the CPM. The neurovascular status is intact. The dressing is dry and intact. Assessment & Plan Ortho Post Op Day #: 1 Problem List: (1) Status post total left knee replacement ICD Codes: Z96.652 - Presence of left artificial knee joint Plan: Continue postop care and PT. (2) Primary osteoarthritis of left knee ICD Codes: M17.12 - Unilateral primary osteoarthritis, left knee Status: Resolved Assessment and Plan Condition: Good. Orthopedically stable. DVT prophylaxis: TEDs, aspirin, sequentials. Discharge plans: Home with home health care. An appointment was scheduled through the office. Prescriptions: [place] 7.5/325 Magnolia Oliveros MD ([place]) Oct 10, 2017 07:12
--- NOTE | 2017-10-10 07:59 | HHI.DS ---
Discharge Summary Admission Date Oct 09, 2017 at 05:07 Discharge Date: Oct 10, 2017 Admitting Diagnosis Primary osteoarthritis, left knee. Diagnosis: (1) Status post total left knee replacement Diagnosis: Principal ICD Codes: Z96.652 - Presence of left artificial knee joint (2) Primary osteoarthritis of left knee Diagnosis: Principal ICD Codes: M17.12 - Unilateral primary osteoarthritis, left knee Status: Resolved Procedures Left total knee arthroplasty using Darrell Triathlon prosthesis (uncemented) on 10/09/2017 Brief History This is a 67 year old female patient has had progressive worsening of pain in her left knee that has been nonresponsive to conservative measures. This is limited her ambulation tolerance and interfered with her activities of daily living. This is well documented in the history and physical examination. Her physical findings showed some genu valgum with tenderness particularly in the lateral compartment and crepitation throughout the entire range of motion. X- ray showed severe osteoarthritis with predominant involvement in the lateral compartment. CBC/BMP: 10/10/17 0403 10/10/17 0403 Significant Findings Laboratory Tests Test 10/10/17 04:03 White Blood Count 14.1 TH/MM3 (4.0-11.0) Red Blood Count 3.67 MIL/MM3 (4.00-5.30) Hemoglobin 11.2 GM/DL (11.6-15.3) Hematocrit 33.4 % (35.0-46.0) Neutrophils (%) (Auto) 84.8 % (16.0-70.0) Lymphocytes (%) (Auto) 8.5 % (9.0-44.0) Neutrophils # (Auto) 11.9 TH/MM3 (1.8-7.7) Total Protein 6.0 GM/DL (6.4-8.2) Albumin 3.0 GM/DL (3.4-5.0) Aspartate Amino Transf (AST/SGOT) 13 U/L (15-37) Estimat Glomerular Filtration Rate 68 ML/MIN (>89) Free Thyroxine 1.63 NG/DL (0.76-1.46) Thyroid Stimulating Hormone 3rd Gen 0.096 uIU/ML (0.358-3.740) PE at Discharge She is resting comfortably, supine in bed, in the CPM. The neurovascular status is intact. The dressing is dry and intact. Hospital Course The patient was admitted as noted above. The above noted operative procedure was carried out that day. Preoperatively prophylactic antibiotics were administered Ancef according to protocol. These were continued postoperatively. The patient also received tranexamic acid to help with hemostasis according to protocol. In the postanesthesia care unit a continuous passive motion device was initiated. Also initiated were mechanical methods of DVT prophylaxis in the form of GERMAN stockings and sequentials. Physical therapy was initiated on the day of surgery. On postoperative day #1 physical therapy continued. The use of the continuous passive motion device continued. DVT prophylaxis with aspirin 81 mg was initiated at this time. The patient continued physical therapy throughout the hospitalization. The distance walked and range of motion improved throughout the hospitalization. The patient was discharged on postoperative day 1 with the disposition being to home with home health care. An appointment for follow-up was made prior to admission. Pt Condition on Discharge: Good Discharge Disposition: Disch w/ Home Health Serv Discharge Instructions Diet Instructions: As Tolerated, No Restrictions Activities You Can Perform: Full Weight Bearing, Shower Only-No Bath Activities to Avoid: Lifting/Bending, Strenuous Activity, Bathing, Driving Follow up Referrals: Orthopedics with Magnolia Oliveros MD ([place]) New Medications: Aspirin DR (Aspirin DR) 81 Mg Tabdr 81 MG PO BID for Prevent Blood Clot for 30 Days, #60 TAB Hydrocodone/Acetaminophen (Hydrocodone-Acetamin 7.5-325) 7.5 Mg-325 Mg Tablet 1 TAB PO Q4H PRN for PAIN SCALE 1 TO 10, #30 TAB Continued Medications: Ascorbic Acid (Vitamin C) 250 Mg Tab 250 MG PO DAILY for Nutritional Supplement, TAB 0 Refills Atorvastatin (Atorvastatin) 20 Mg Tab 20 MG PO HS for Cholesterol Management, #30 TAB 0 Refills Fexofenadine-Pseudoephedrine ER 24 HR (Lisa-D 24 Hour Allergy) 180-240 Khloe 1 TAB PO DAILY for Allergy Management, #30 TAB 0 Refills Levocetirizine Dihydrochloride (Xyzal) 5 Mg Tablet 5 MG PO HS Levothyroxine (Synthroid) 112 Mcg Tab 112 MCG PO DAILY for Thyroid, #30 TAB 0 Refills Multiple Vitamin (Multi-Vitamin Daily) 1 Tab Tab 1 TAB PO DAILY for Nutritional Supplement, TAB 0 Refills [place]-3/Dha/Epa/Fish Oil (Fish Oil 1,000 mg Softgel) 1,000 Mg (120 Mg-180 Mg) Capsule 1 CAP PO DAILY NEB Vitamins C & E (Cranberry Urinary Comfort) 1 Cap 1 CAP PO DAILY for Urinary Symptom Managemen, CAP 0 Refills Discontinued Medications: Aspirin DR (Aspirin 81) 81 Mg Tabdr 81 MG PO HS, TAB 0 Refills Magnolia Oliveros MD ([place]) Oct 10, 2017 07:59
[2017-10-10 08:00] VITALS: BP 138/63; PULSE 55; RESP 18; TEMP 98; O2SAT 97
[2017-10-10] MEDS ORDERED: NON-FORMULARY DRUG (Omega-3/Dha/Epa/Fish Oil (Fish Oil 1,000 mg Softgel) 1 CAP) PO SCH (08:00)
[2017-10-10] MEDS ORDERED: ASPIRIN EC 81 MG TABEC PO SCH (09:00)
[2017-10-10] MEDS ORDERED: LORATADINE/PSEUDOEPHEDRINE 5 MG/120 MG TAB PO SCH (09:00)
[2017-10-10] MEDS ORDERED: NON-FORMULARY DRUG (Vitamins C & E (Cranberry Urinary Comfort) 1 CAP) PO SCH (09:00)
[2017-10-10] MEDS ORDERED: ASCORBIC ACID 500 MG TAB PO SCH (09:00)
[2017-10-10] MEDS ORDERED: MULTIVITAMIN TAB PO SCH (09:00)
[2017-10-10 10:10] VITALS: RESP 20
[2017-10-10 16:37] LABS: HEMOGLOBIN A1C 5.3 % (4.3-6.0)
[2017-10-10] MEDS ORDERED: DOCUSATE SODIUM 100 MG CAP PO SCH (21:00)
== END 2017-10-10 14:38 | disposition home health service (06) | DRG 470 ==
LOC: HSDI 10-09 05:07 → N06B 10-09 10:24
PROVIDERS: ADMIT Orthopaedic Surgery; ATTEND Orthopaedic Surgery
PROC: 3E0T3BZ Introduction of Anesthetic Agent into Peripheral Nerves and Plexi, Percutaneous Approach (ICD-10-PCS; 2017-10-09)
PROC: 0SRD0JA Replacement of Left Knee Joint with Synthetic Substitute, Uncemented, Open Approach (ICD-10-PCS; principal; 2017-10-09 06:48)
DX: M17.12 Unilateral primary osteoarthritis, left knee (principal); I10 Essential (primary) hypertension; E07.9 Disorder of thyroid, unspecified; E78.5 Hyperlipidemia, unspecified; G89.29 Other chronic pain; M54.9 Dorsalgia, unspecified; M21.069 Valgus deformity, not elsewhere classified, unspecified knee; J30.2 Other seasonal allergic rhinitis; Z87.891 Personal history of nicotine dependence; Z82.49 Family history of ischemic heart disease and other diseases of the circulatory system
CPT/HCPCS: 73560; 80053; 83036; 83735; 84100; 84439; 84443; 85025; 86850; 86900; 86901; 94150; C1776; C9290; J0131; J0690; J1100; J1580; J1885; J2250; J2270; J2405; J2710; J3010; J7120